=== PATIENT | female | born 1955 | race Caucasian/White ===

== ENCOUNTER 2023-11-14 11:22 | Day surgery (SDC) | payer MEDICARE, OTHER, SELFPAY ==
--- NOTE | 2023-11-14 13:03 | ITS.CL.CATH ---
Hand Miter Operator - Catheterization
Cardiac Catheterization
Procedure Report:
CARDIAC CATHETERIZATION REPORT
Date of Procedure: 11/14/2023
Referring: Jorge Rodriguez MD
Indication: MVP/severe MR with dyspnea on exertion
HEMODYNAMIC DATA
AO: 141/68
LV: 141/14
LEFT VENTRICULOGRAPHY: The left ventricle appears to be normal in size. There is normal regional wall motion with EF 64% with 3-4+ (severe) mitral regurgitation
CORONARY ANGIOGRAPHY
Dominance: Right
Left Main: Normal
LAD: Normal
Circumflex: Normal
RCA: Normal dominant vessel
Closure Device: None-the procedure was performed
Radiation (mGy): 78.8
DAP (cm2.Gy): 6.4
Fluoroscopy time: 1.7 minutes
CONCLUSIONS
1: Normal left ventricular size and function with EF 64%
2: Severe mitral regurgitation
3. Normal coronary arteries
4. Recommend corrective mitral valve surgery
Copy to: Jorge Rodriguez MD, Christian Hernández,
Charlie Peterson MD, FAC, [facility]
[2023-11-14] MEDS: NSS 1000 IV (13:56)
== END 2023-11-14 16:38 | disposition home or self-care (01) ==
LOC: CATH 11:22
PROVIDERS: ATTENDING PHYSICIAN Internal Medicine Cardiovascular Disease; FAMILY PHYSICIAN Internal Medicine; OTHER PHYSICIAN Internal Medicine Cardiovascular Disease
DX: I34.0 Nonrheumatic mitral (valve) insufficiency (principal); R00.2 Palpitations; I47.29 Other ventricular tachycardia; E03.9 Hypothyroidism, unspecified; K21.9 Gastro-esophageal reflux disease without esophagitis; Z87.891 Personal history of nicotine dependence; Z79.82 Long term (current) use of aspirin
CPT/HCPCS: 93458; C1894

== ENCOUNTER → 2023-12-04 14:05 | Outpatient (REF) | payer MEDICARE, OTHER, SELFPAY | LOC: HWRAD 14:05 | PROVIDERS: ATTENDING PHYSICIAN Thoracic Surgery (Cardiothoracic Vascular Surgery); FAMILY PHYSICIAN Internal Medicine | DX: I34.0 Nonrheumatic mitral (valve) insufficiency (principal); Z01.818 Encounter for other preprocedural examination | CPT/HCPCS: 71275; 74174; Q9967 ==

== ENCOUNTER 2023-12-10 05:11 | Inpatient (IN) | payer MEDICARE, OTHER, SELFPAY ==
[2023-12-06 09:52] VITALS: BMI 30.7
[2023-12-06 10:11] LABS: % Basophils 0.8 % (0-2); % Eosinophils 5.7 % (0-6); % Immature Granulocytes 0.2 % (0-0.5); % Lymphocytes 24.9 % (20.5-51.1); % Monocytes 6.2 % (1.7-9.3); % Neutrophils 62.2 % (42.2-75.2); Absolute Basophils 0.1 10^3/uL (0-0.2); Absolute Eosinophils 0.4 10^3/uL (0-0.7); Absolute Lymphocytes 1.6 10^3/uL (1.2-3.4); Absolute Monocytes 0.4 10^3/uL (0.1-0.6); Absolute Neutrophils 3.9 10^3/uL (1.4-6.5); Hematocrit 38.6 % (37.0-47.0); Mean Corp Hgb Conc. 33.7 g/dL (33.0-37.0); Mean Corpuscular Hgb 31.9 pg (27.0-31.0); Mean Corpuscular Volume 94.6 fL (81.0-99.0); Mean Platelet Volume 10.4 fL (7.4-10.4); Nucleated Red Blood Cells % 0 %; Platelet Count 212 10^3/uL (130-400); Red Blood Cell Count 4.08 10^6/uL (4.20-5.40); Red Cell Dist. Width 12.8 % (11.5-14.5); White Blood Cell Count 6.3 10^3/uL (4.8-10.8)
[2023-12-06 10:21] LABS: ALT (SGPT) 38 U/L (0-35); AST (SGOT) 42 U/L (14-36); Alkaline Phosphatase 108 U/L (38-126); Blood Urea Nitrogen 18 mg/dl (7-17); Calcium 9.4 mg/dl (8.4-10.2); Carbon Dioxide 29 mmol/L (22-30); Chloride 107 mmol/L (98-107); Direct Bilirubin 0.1 mg/dl (0.0-0.4); Estimated Creatinine Clearance 58 ml/min; Glucose 93 mg/dl (70-99); Sodium 139 mmol/L (135-145); Total Bilirubin 0.6 mg/dl (0.2-1.3); Total Protein 6.5 g/dl (6.3-8.2); eGFR > 60.00
--- NOTE | 2023-12-06 10:32 | CM ---
Chart reviewed. Met with the patient and her in PAT. 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 Reviewed
preoperative and postoperative instructions, along with showering guidelines. Gave patient 2 soaps. Patient is agreeable to a home visit by CT Transitional RN. Plan is for the patient to return home with CT Transitional RN.
[2023-12-06 10:33] LABS: INR 0.94; PT 12.4 Sec (11.4-14.6)
[2023-12-06 10:34] LABS: APTT 26.7 Sec (23.4-35.0)
[2023-12-06 10:42] LABS: Potassium 4.8 mmol/L (3.5-5.1)
[2023-12-06 12:41] LABS: Urine Albumin Negative (Neg - Trace); Urine Bilirubin Negative (Negative); Urine Character Slightly Cloudy (Clear); Urine Color Yellow; Urine Glucose Negative (Negative); Urine Ketone Trace (Negative); Urine Leukocyte 1+ (Negative); Urine Nitrite Negative (Negative); Urine Occult Blood 2+ (Negative); Urine Urobilinogen 1+ (Neg - 1+); Urine pH 6.5 (5.0-9.0)
[2023-12-06 13:27] LABS: Urine Bacteria Few (Negative)
[2023-12-06 13:58] LABS: Glycohemoglobin (HgbA1c) 5.7 % (4.0-5.6)
[2023-12-10] VITALS (10 sets, daily range): BP systolic 84–127; BP diastolic 58–87; BMI 30.2
--- NOTE | 2023-12-10 00:52 | W.PN.CT ---
Assessment / Plan
-
Assessment:
S/p Right mini thoracotomy with right common femoral artery and vein cannulation under CHELSEY guidance/Radical mitral valve repair (32 mm band annuloplasty, [place]-Ángel cords placed to A2, P2, P3, cleft closure of P2/P3 and P1/P2)/Left atrial appendage
exclusion (sewn shut)/ PFO/ASD Closure, by Dr. Ponce, 12/10/23, pod#1
-Severe MR secondary to degenerative mitral valve disease, type II pathology
-LVEF 55-60% per intraop CHELSEY
-Mild TR
-Hx NSVT/PVC's
-Palpitations
-HTN
-HLD
-Class 1 obesity (BMI 30.7)
-Prediabetes (A1C 5.7)
-GERD
-Hypothyroidism
-Acne vulgaris
-Ptosis
-Migraines
-Iron deficiency anemia
-Vit D deficiency
-Diverticulosis
-Colon polyps (sessile serrated adenoma)
-Fibrocystic breast
-S/p D&C, 07/18/11
-S/p b/l tubal ligation
-S/P polypectomies
-S/P Repair of left index finger
-S/p b/l cataracts with lens implantation
-Acute postop blood loss/Anemia (stable without transfusion)
-Acute postop atelectasis
-Acute postop hypovolemia with subsequent hypervolemia
Plan:
-No major issues overnight. Hemodynamically and neurologically intact
-Successfully extubated yesterday 12/10/23 in the OR
-Weaned off Levophed overnight, remains on insulin gtt per protocol
-Last CI 2.4, SVO2 ,U/O since OR 1055 mL
-Monitor chest tube output: R Pleural + meds ->
-Cont. current meds (ASA, Synthroid; held Amiodarone and Lopressor last night given hypotension and bradycardia)
-D/C swan and a-line
-Will D/C insulin gtt/transfer to telemetry phase today
-D/C morse
-Maintain cordis
-Maintain temporary pacer wires (will cut before d/c home)
-Encourage use of IS
-Wean off of O2
-OOB into chair
-Ambulate
Subjective
-
Date of Service: December 10, 2023
Objective Data
-
Lab Results
12/06/23 08:49
12/06/23 08:49
PT 12.4 Sec (11.4-14.6) 12/06/23 08:49
INR 0.94 12/06/23 08:49
APTT 26.7 Sec (23.4-35.0) 12/06/23 08:49
[2023-12-10] MEDS: MAGNESIUM OXIDE 500 MG PO (05:34)
[2023-12-10] MEDS: LOPRESSOR 25 MG PO (05:34)
[2023-12-10] MEDS: PROTONIX 40 MG PO (05:34)
--- NOTE | 2023-12-10 07:00 | W.CVOR.SURPR ---
CVOR Surgeon Immed Pre Op
-
I have examined this patient prior to performance of the scheduled procedure.
The patient's condition is unchanged from the time of the dictated/written History and
Physical and the patient is able to undergo the scheduled procedure.
MV Repair +/- JENNI Exclusion
[2023-12-10 07:26] LABS: ACT+ - POC 93 Seconds (82-134)
[2023-12-10 07:29] LABS: B.E. - POC -2.9 mmol/L; Glucose - POC 89 mg/dl (65-99); HCO3 - POC 23 mmol/L (21-29); Hematocrit - POC 34 % PCV (37-47); Hemodilution- POC No; Hemoglobin Calculated - POC 11.4; Ionized Calcium - POC 1.23 mmol/L (1.12-1.27); O2 Saturation %Calculated-POC 99.9 5 (92-96); PCO2 - POC 41 mmHg (35-45); PO2 - POC 342 mmHg (80-100); Potassium - POC 3.6 mmol/L (3.6-5.0); Sodium - POC 143 mmol/L (135-145); pH - POC 7.35 (7.35-7.45)
[2023-12-10 07:54] LABS: Urine Albumin Negative (Neg - Trace); Urine Bilirubin Negative (Negative); Urine Character Clear (Clear); Urine Color Yellow; Urine Glucose Negative (Negative); Urine Ketone Negative (Negative); Urine Leukocyte Negative (Negative); Urine Nitrite Negative (Negative); Urine Occult Blood Negative (Negative); Urine Urobilinogen Negative (Neg - 1+)
[2023-12-10 08:59] LABS: ACT+ - POC 523 Seconds (82-134)
--- NOTE | 2023-12-10 08:59 | CM ---
pt in OR today, cm following
[2023-12-10 09:36] LABS: Glucose - POC 115 mg/dl (65-99); HCO3 - POC 28 mmol/L (21-29); Hematocrit - POC 31 % PCV (37-47); Hemodilution- POC Yes; Hemoglobin Calculated - POC 10.7; Ionized Calcium - POC 0.99 mmol/L (1.12-1.27); PCO2 - POC 42 mmHg (35-45); PO2 - POC 459 mmHg (80-100); Potassium - POC 5.2 mmol/L (3.6-5.0); Sodium - POC 137 mmol/L (135-145); pH - POC 7.42 (7.35-7.45)
[2023-12-10 09:43] LABS: ACT+ - POC 738 Seconds (82-134)
[2023-12-10 10:11] LABS: ACT+ - POC 564 Seconds (82-134)
[2023-12-10 10:13] LABS: B.E. - POC 2.2 mmol/L; Glucose - POC 145 mg/dl (65-99); HCO3 - POC 26 mmol/L (21-29); Hematocrit - POC 30 % PCV (37-47); Hemodilution- POC Yes; Hemoglobin Calculated - POC 10.2; Ionized Calcium - POC 1.08 mmol/L (1.12-1.27); O2 Saturation %Calculated-POC 99.9 5 (92-96); PCO2 - POC 37 mmHg (35-45); PO2 - POC 254 mmHg (80-100); Potassium - POC 4.9 mmol/L (3.6-5.0); Sodium - POC 139 mmol/L (135-145); pH - POC 7.46 (7.35-7.45)
[2023-12-10 10:57] LABS: ACT+ - POC 438 Seconds (82-134)
[2023-12-10 11:02] LABS: B.E. - POC 0.2 mmol/L; Glucose - POC 147 mg/dl (65-99); HCO3 - POC 25 mmol/L (21-29); Hematocrit - POC 29 % PCV (37-47); Hemodilution- POC Yes; Hemoglobin Calculated - POC 9.8; Ionized Calcium - POC 1.09 mmol/L (1.12-1.27); O2 Saturation %Calculated-POC 99.9 5 (92-96); PCO2 - POC 38 mmHg (35-45); PO2 - POC 298 mmHg (80-100); Potassium - POC 4.2 mmol/L (3.6-5.0); Sodium - POC 142 mmol/L (135-145); pH - POC 7.42 (7.35-7.45)
[2023-12-10] MEDS: STERILE WATER FOR INJECTION 16 ML IV ×2 (11:19→13:08)
[2023-12-10] MEDS: ZINACEF 1500 MG IV ×2 (11:19→13:08)
[2023-12-10 11:29] LABS: ACT+ - POC 90 Seconds (82-134)
[2023-12-10 11:33] LABS: B.E. - POC -4.1 mmol/L; Glucose - POC 110 mg/dl (65-99); HCO3 - POC 20 mmol/L (21-29); Hematocrit - POC 25 % PCV (37-47); Hemodilution- POC Yes; Hemoglobin Calculated - POC 8.5; Ionized Calcium - POC 1.33 mmol/L (1.12-1.27); O2 Saturation %Calculated-POC 90.5 5 (92-96); PCO2 - POC 34 mmHg (35-45); PO2 - POC 60 mmHg (80-100); Potassium - POC 3.3 mmol/L (3.6-5.0); Sodium - POC 141 mmol/L (135-145); pH - POC 7.39 (7.35-7.45)
--- NOTE | 2023-12-10 12:20 | W.PN.CT.SURG ---
CT Surgery Operative Note
-
CARDIAC SURGERY OPERATIVE REPORT
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
Postoperative Diagnosis: Same
Procedure(s) Performed:
1. Right mini thoracotomy with right common femoral femoral artery and vein cannulation under CHELSEY guidance
2. Radical mitral valve repair (32 mm band annuloplasty, [place] cords placed to A2, P2, P3, cleft closure of P2/P3 and P1/P2)
3. Left atrial appendage exclusion (sewn shut)
4. PFO/ASD Closure
5. Placement temporary ventricular pacing wires
6. Trans esophageal echocardiography
Date of Surgery: 12/10/2023
Comorbidities:
1. Severe mitral valve insufficiency secondary to degenerative mitral valve disease, type II pathology
2. Hypothyroidism
3. GERD
4. Colonic polyps
5. Iron deficiency anemia
6. Cataracts
7. History of NSVT/PVC
8. Hyperlipidemia
Attending Surgeon: Nemesio Ponce MD, MS
Assistants: Delicia Culp PA-C (present and necessary for retraction, suctioning, exposure, suture management, wound closure, etc. under my direction)
Anesthesiology: Francisco Aguirre MD and Elier Soler CRNA
Scrub and Circulating RNs: Lori Gallardo RN, Honey Padilla RN
Marine Engine Mechanic: Miryam Palencia CCP
Anesthesia: GETA
EBL: per perfusion records
Products: None
CPB Time: 134 minutes
Aortic Cross Clamp Time: 104 minutes
Indication(s) for Procedures: This is a 68-year-old female with known mitral valve prolapse and insufficiency in the past. She had new onset dyspnea on exertion and underwent left heart catheter demonstrated normal coronary arteries and normal left
ventricular function. However on transesophageal echocardiography of her valve had severe eccentric and a complex component of insufficiency. She met stage D symptomatology and class I indication for mitral valve intervention.
Mitral Valve Description: Bileaflet prolapse and lip thickening of both leaflets. The majority of the prolapse segments belong to P2 and P3 with a large scallop between both. The A2 and A3 segment was also prolapse. Annulus was asymmetrically
dilated toward the P2 and P3 segments. No obvious flail component with identified.
Implants:
1. 32mm NEVAREZ PhysioFlex, SN [id number]
2. CV4 Goretex x 4 (3 to P2/3 and 1 to A2)
Specimen:
1. None
Findings: Left ventricular ejection fraction preoperatively was 60%. Following surgery remained the same at 60% with no new regional wall motion abnormalities. RV function was normal. The mitral valve was myxomatous with prolapse of both
leaflets. A total of 12 nonpledgeted 2 Ethibond sutures were placed from trigone to trigone to support the annulus and 3 pairs of CV 4 [place] were placed to the posterior leaflet. A single pair of CV 4 [place] was placed in the posterior
papillary muscle head to the A2 segment of the anterior leaflet. Core knots were used to secure the annuloplasty band in place. Dynamic inflation of the LV with saline demonstrated good coaptation height after marking the coaptation line with ink.
There is also a posterior coaptation margin. The left atrial appendage was verified to be free of any thrombus or debris preoperatively on CHELSEY. Following suture closure in 2 layers, there is no postoperative flow identified going into the left
atrial appendage. A PFO was identified on preoperative CHELSEY with a small shunt preoperatively going from left to right. This was closed with 5-0 Prolene and secured with a mini core knot following surgery there was no residual mitral valve
insufficiency, no systolic anterior motion of the leaflets, and good excursion without a significant gradient. She was initially sinus bradycardic and required VVI pacing at 60. No inotropes required no products were given.
Description of Procedure: The patient was brought to the operating room and placed supine in the table with their right side bumped up and right arm down. Arterial and central access was performed by anesthesiology. The patient was prepped from chin
to toes in the typical sterile fashion. Trans esophageal evaluation of cardiac function and all valvular structures was conducted. Before commencing, a time out was performed by all members of the team. All were in agreement with the procedure and
laterality and I proceeded. A small right groin incision was made to expose the common femoral artery and vein. A total of 40,000units of heparin was given. A 5-6 cm right lateral thoracotomy was performed over the 4th intercostal space verified by
visualization of the hilum. The common femoral artery and vein were cannulated under transesophageal guidance using open Seldinger technique. The arterial line was verified to have an appropriate bounce and pressure correlating with testing. Once
the ACT was above 400, retrograde autologous priming was done and we commenced cardiopulmonary bypass. Target core temperature was 34�C.
Carbon dioxide was used to flood the field. The course of the phrenic nerve was identified to prevent injury. The pericardium was opened and two stay sutures were placed to facilitate a ``pericardial table.��I also used the pericardium to help
retract the diaphragm from the field of view. The oblique sinus was developed followed by the inter atrial groove. An antegrade root vent was inserted and secured with a pursestring suture. The pump flow and mean arterial pressure were lowered and
an aortic cross clamp was applied to the ascending aorta. A total of 1.2L initial dose of antegrade cardioplegia was delivered. We had rapid electro myocardial quiescence at 350cc of cardioplegia. The ventricle was monitored for distension by
echocardiogram during this time. The left atrium was incised and enlarged. A left atrial lift retractor was placed. The mitral valve was inspected. The mitral valve was repaired as described above. The left atrial appendage was closed with 2 layers
using 3-0 prolene and secured with a corknot. The left atrial lift was pulled back and then the PFO was probed and closed with 5-0 prolene in 2 layers and then secured with a mini corknot. The left atriotomy was closed with 3-0 prolene in a running
fashion leaving a ventricular vent in place to de-air. After filling the heart, the vent was removed and the prolene was secured with a corknot. Unipolar ventricular pacing wire was placed on the base of the right ventricle. The patient was placed
into Trendelenburg position and pump flows were lowered. The clamp was slowly removed with the root vent turned on. De-airing maneuvers were performed. We started to rewarm with a target of 36.5�C.
As the heart recovered, the mitral valve and ventricular function were assessed under transesophageal echocardiogram. The root vent was removed. Once weaning parameters were satisfactory, cardiopulmonary bypass flow was lowered until we were off
cardiopulmonary bypass the mitral valve was inspected again. All surgical sites were inspected for hemostasis and appeared appropriate. The lines were clamped and the arterial was relocated to the venous cannula to give back volume. A test dose of
protamine was delivered and patient was monitored for any adverse reactions followed by complete protamine dosing. The femoral vessels were decannulated and repaired as indicated. The pericardium was approximated with 2-0 ethibond sutures secured
with corknots. One 19F Surya drain remained in the pleural space and one 24F surya drain in the pericardium. There was an excellent palpable distal to the AIRCRAFT ENGINE TECHNICIAN cannulation site. Local analgesia was injected to the thoracotomy. The rib space was
approximated with #1 vicryl suture. The incision was closed in layers in a running fashion.
All instrument, sponge, and needle counts were confirmed to be correct x 2 at the end of the operation. The patient was transferred to the cardiac intensive care unit in critical but stable condition.
I, Dr. Nemesio Ponce, was present, scrubbed for, and performed all critical elements of this procedure.
Nemesio Ponce MD, MS
Cardiothoracic Surgeon
[facility]
This dictation was created using the [employer] dictation system. Please excuse any grammatical, typographical, or 'sound alike' errors
[2023-12-10] MEDS: ALBUMIN 5% 250 IV ×2 (12:59→20:10)
[2023-12-10] MEDS: BACTROBAN 2% OINTMENT 1 APPLIC NASAL ×2 (13:03→19:33)
[2023-12-10] MEDS: NSS 500 IV (13:03)
[2023-12-10] MEDS: TYLENOL PO (13:03)
[2023-12-10] MEDS: TORADOL 15 MG IV ×2 (13:07→19:34)
[2023-12-10 13:13] LABS: Glucose - Point of Care 141 mg/dl (70-99)
--- NOTE | 2023-12-10 13:19 | W.PN.CD ---
Today's Communication / Plan
-
wean drips as tolerated
Impression / Plan
-
S/P complex MV repair for bileaflet prolapse: Doing well immediate postop. Vpaced with occ A pacing. On levo/NTG.
ECG ELL TUTOR- not clearly sinus underlying. Suspect junctional
Hypothyroid: On synthroid
Physical Exam
Vital Signs/Labs
Vital Signs
Temp Pulse Resp BP Pulse Ox
96.8 F L 66 18 154/75 98
12/10/23 13:00 12/10/23 05:34 12/10/23 05:26 12/10/23 05:34 12/10/23 05:26
12/09/23 12/10/23 12/11/23
06:59 06:59 06:59
Actual Weight 181 lb 3.52 oz
PT 12.4 Sec (11.4-14.6) 12/06/23 08:49
INR 0.94 12/06/23 08:49
APTT 26.7 Sec (23.4-35.0) 12/06/23 08:49
Physical Exam
Constitutional: No acute distress
Cardiovascular: Rhythm & rate is regular and Systolic murmur absent
Respiratory: Respiratory effort normal and Rhonchi Present
Neuro/Psych: Motor deficits absent
Data Reviewed
-
Date of Service: December 10, 2023
[2023-12-10 13:21] LABS: B.E. -3.3 mmol/L; HCO3 23.9 mmol/L (21-28); Ionized Calcium 1.28 mMOL/L (1.15-1.33); PCO2 52 mmHg (32-35); PO2 203 mmHg (83-108); Potassium 3.8 mMOL/L (3.5-5.1); Sodium 140 mMOL/L (136-145); pH 7.27 (7.35-7.45)
[2023-12-10 13:22] LABS: Hemoglobin 10.2 g/dL (12.0-16.0); Platelet Count 150 10^3/uL (130-400)
[2023-12-10 13:31] LABS: INR 1.28; PT 15.9 Sec (11.4-14.6)
[2023-12-10 13:32] LABS: APTT 26.9 Sec (23.4-35.0)
--- NOTE | 2023-12-10 13:32 | CON.INTV ---
Consultation
Consultation Request
Date/Time Consultation Requested: 12/10/23
Date/Time Consultation Performed: 12/10/23
Medical History
-
History of Present Illness:
Patient is a 68-year-old female with known history of mitral valve prolapse and severe mitral insufficiency with complaints of progressive dyspnea on exertion. Underwent mitral valve repair 12/10/23 and postoperatively transferred to CVICU for
further management.
No prior known history of lung disease. Was a former smoker. Quit >30 years ago, total use of 1 PPD for 20 years.
Past Medical History
Past Medical History: Other (see list below)
Social History
Tobacco: Former Smoker
Alcohol: None
Drug: None
Family History
Family History: Reviewed & Not Pertinent
Allergies / Home Medications
Allergies
Allergy/AdvReac Type Severity Reaction Status Date / Time
kiwi Allergy throat Verified 12/04/23 09:57
[Kiwi (Actinidia Chinensis)] irritation
Home Medications
Medication Instructions Recorded Confirmed Last Taken Type
cholecalciferol (vitamin D3) 25 25 mcg PO DAILY Supplement 06/20/23 12/10/23 12/09/23 12:00 History
mcg (1,000 unit) capsule (Vitamin
D3)
levothyroxine 150 mcg tablet 150 mcg PO DAILY Thyroid 06/20/23 12/10/23 12/09/23 07:00 History
magnesium sulfate 100 mg capsule 500 mg PO DAILY Supplement 06/20/23 12/10/23 12/09/23 12:00 History
metoprolol succinate 25 mg 12.5 mg PO QPM Heart 06/20/23 12/10/23 12/09/23 12:00 History
tablet,extended release 24 hr Disease/Condition
(Toprol XL)
multivitamin 1 tab PO DAILY Supplement 11/14/23 12/10/23 12/09/23 12:00 History
Review of Systems
-
History Source: Patient
All other systems: Negative unless noted
Vitals / Labs / Diagnostic Testing
Vital Signs
Temp Pulse Resp BP Pulse Ox
96.8 F L 66 18 154/75 98
12/10/23 13:00 12/10/23 05:34 12/10/23 05:26 12/10/23 05:34 12/10/23 05:26
Laboratory Results
12/10/23
13:11
PT 15.9 H
INR 1.28
pH 7.27 L
pCO2 52 H
pO2 203 H
HCO3 23.9
O2 Delivery Level
Microbiology
12/06/23 08:49 Nose MRSA Screen - Final
No Methicillin Resistant Staphylococcus aureus isolated.
12/06/23 08:49 Urine Urine Culture - Final
Diagnostic Testing:
Physical Exam
-
HEENT: Normocephalic, Anicteric and Moist Mucous Membranes
Cardiovascular: S1/S2 and Regular Rhythm
Respiratory: Clear and Non-Labored Respirations
GI: Soft, Non Distended and Non Tender
Neurology: Awake, Alert, Oriented and Other (sleepy but arousable)
Skin: Warm, Dry and Good Color
General: Comfortable and Other (NAD)
Assessment
-
Patient is a 68-year-old female with known history of mitral valve prolapse and severe mitral insufficiency with complaints of progressive dyspnea on exertion. Underwent mitral valve repair 12/10/23 and postoperatively transferred to CVICU for
further management.
MVP with severe MVI s/p MVR 12/10/23
Small PFO s/p closure 12/10/23
BEASLEY
Periop MV s/p extubation
Postop anemia
Acute hypercarbic resp failure, mild (ABG 7.27/52)
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
Former smoker
[place] Vulgaris� �
Hypothyroidism
Fibrocystic breast� �
GERD� �
H/o colon polyp/sessile serrated tubular adenoma � �
H/o ptosis s/p bleph surgery� �
Low Vitamin D� �
Iron deficiency anemia� �
Cataracts s/p cataract extraction and lens implantation (2009)� �
Diverticulosis� �
NSVT, PVC's� �
Hyperlipidemia� �
s/p B/L tubal ligation
L index finger surgery
Obesity
Plan
S/p MVR POD #0
Titrate off pressors per protocol
ECHO reviewed with normal function
PA catheter readings reviewed
Management of chest tubes per primary service
Pain control
RASS goal of 0 to -1
Intubated for procedure, extubated in PACU, tolerating well
ABG(s) reviewed showing mild hypercarbia, repeat pending
CXR with no obvious opacities/infiltrates, low lung volumes, lines/tubes in place
Maintain supplement oxygen as needed
No prior known history of lung disease.
Was a former smoker. Quit >30 years ago, total use of 1 PPD for 20 years.
No prior PFTs for review
Can add nebulizers if needed
Aspiration precautions
Encouraged incentive spirometry, OOB/ambulation/early mobility
Possible underlying SIXTO, risk factors include BMI, age
Advance diet as tolerated following extubation
GI prophylaxis if indicated for mechanical ventilation >48 hours
Monitor critical I/O's
Reis/chest tube output
Hb/platelets postoperatively stable
Trend CBC for now
Can transfuse if indicated for Hb <7, plt <50 in surgical patients
DVT prophylaxis including SCDs
We will follow
Diagnostic Data
Chest X-Ray: 12/09/23- Right internal jugular approach [place]-Dilip catheter with the tip in the main pulmonary artery. Two catheters project over the upper and lower aspects of the mediastinum. A defibrillator pad overlies the right chest wall.
Ptqt-lg-[id number] elevation of the right hemidiaphragm. No focal consolidation, pleural effusion, or pneumothorax. The cardiomediastinal silhouette is stable.
09/14/22- No acute radiographic abnormality in the chest. Specifically, no evidence for right apical pneumothorax
CT Scan: CAP 12/04/23- Mild calcific atherosclerotic changes of the thoracic aortic arch and descending thoracic aorta. No findings to suggest thoracic/abdominal aortic aneurysm or dissection.
Either two small contiguous simple right lobe hepatic cyst versus larger single bilobed cyst. Small simple left renal cyst. Few small right lower quadrant mesenteric lymph nodes, nonspecific. Findings could represent mesenteric adenitis. Small fat
only containing umbilical hernia.
Echo: CHELSEY 12/10/23- Severe mitral regurgitation resulting from prolapsing P2, P3, A3 leaflet segments and a P2/P3 cleft.� Trace jet of central aortic insufficiency is also�seen.� Mild tricuspid regurgitation.� The thoracic aorta is grossly
normal.��Small patent foramen ovale is seen.� Normal biventricular systolic function�with LVEF of 55-60% by visual inspection.� Dilated left atrium noted.
�
PFT's:
Reports and relevant images were personally reviewed.
-----
Critical Care time 50 mins -- The patient is admitted for acute critical illness for the treatment of vital organ failure and/or prevention of further life-threatening conditions. Total care includes time spent in review of history, physical exam,
medications, hemodynamic/ventilator parameters, laboratory data, imaging and discussion with house staff, pharmacy, respiratory therapy, eap consultant, and nursing.
[2023-12-10 13:34] LABS: Blood Urea Nitrogen 18 mg/dl (7-17); Estimated Creatinine Clearance 64 ml/min; Glucose 137 mg/dl (70-99); Magnesium 3.1 mg/dl (1.6-2.3)
[2023-12-10] MEDS: SODIUM BICARBONATE 50 MEQ IV (13:41)
[2023-12-10] MEDS: KCL 50 IV ×2 (13:42→13:45)
[2023-12-10] MEDS: DILAUDID 0.25 MG IV ×2 (13:46→21:55)
--- NOTE | 2023-12-10 13:52 | PTCARENOTE ---
received patient from cvor. Drowsy but arousable. Extubated wearing a simple face mask. V paced on monitor HR 70. Temp wire in place. Usual lines, CTx2 to -20 wall suction. Draining red. No air leaks/crepitus. CXR done, labwork drawn and sent. Out
on levo and insulin per glycemic protocol. Reis draining clear yellow urine. Bowel sounds hypoactive. R groin site RORY with surgical glue as well as 3 puncture sites on R side and chest. CI 1.[address] Ponce at bedside, asking for 1 bag
albumin to be given. will continue to monitor.
--- NOTE | 2023-12-10 14:02 | W.PN.UPDATE ---
Update Note
Progress Note Update
IV fluids: 2450ml
U.O.:� 650
UF:� 1400
Blood:� None
Wires:� V wires
Inotropes:� None
Pressors:� Levophed on standby on arrival to CVICU
Sedatives:� None
�
NEURO: mildly following commands. Extubated in PACU
RESP: mediastinal and R/L pleural (10cc on arrival) chest tubes to -20cm suction. Sanguineous drainage
CV: RRR +S1, S2, no S3, no�rub, no murmur.RIJ w/[place] locked @ 44cm. PA 38/22; CVP 15;
ABD: round, soft, no BS
EXT: no edema, +2/4 DP pulses B/L, no femoral bruit, left radial A-line intact
: Reis with clear yellow urine
�
A/P: POD #0 s/p Radical mitral valve repair (32 mm band annuloplasty, [place]-Ángel cords placed to A2, P2, P3, cleft closure of P2/P3 and P1/P2), PFO closure, and JENNI exclusion
CHELSEY: EF�55-60%
- wean and extubate
- Monitor CT output
- F/u post-op labs
- F/u Post-op CXR
- start ASA 81mg on POD #0
- monitor UOP
- start BB/amio on POD #1
- will need instruction regarding antibiotic prophylaxis for dental and invasive procedures
�
# acute surgical blood loss anemia-expected
- trend CBC
�
# hyperglycemia (expected)
- insulin infusion x 24h
#hypothyroidism
- resume Synthroid
�
[2023-12-10 14:21] LABS: Glucose - Point of Care 153 mg/dl (70-99)
[2023-12-10 15:25] LABS: Glucose - Point of Care 132 mg/dl (70-99)
[2023-12-10 15:36] LABS: B.E. -0.7 mmol/L; HCO3 24.2 mmol/L (21-28); Ionized Calcium 1.26 mMOL/L (1.15-1.33); O2 Saturation % 98.3 % (94-98); PCO2 40 mmHg (32-35); PO2 128 mmHg (83-108); Potassium 5.4 mMOL/L (3.5-5.1); Sodium 141 mMOL/L (136-145); pH 7.39 (7.35-7.45)
[2023-12-10 15:41] LABS: Hematocrit 28.4 % (37.0-47.0); Platelet Count 156 10^3/uL (130-400)
[2023-12-10] MEDS: LOW STRENGTH ASPIRIN 81 MG PO (15:52)
[2023-12-10] MEDS: TYLENOL 650 MG PO ×3 (15:52→23:48)
[2023-12-10 16:57] LABS: Glucose - Point of Care 115 mg/dl (70-99)
[2023-12-10] MEDS: ROXICODONE 5 MG PO (17:04)
[2023-12-10] MEDS: ZOFRAN 4 MG IV (18:33)
[2023-12-10 18:37] LABS: Glucose - Point of Care 98 mg/dl (70-99)
--- NOTE | 2023-12-10 18:37 | PTCARENOTE ---
vomit x2. zofran given iv as ordered.
[2023-12-10 19:30] LABS: Mixed Venous O2 Saturation 56.8 %
[2023-12-10] MEDS: NSS (PRESERVATIVE FREE) 8 ML IV (19:34)
[2023-12-10] MEDS: PEPCID 20 MG IV (19:34)
[2023-12-10] MEDS: ZINACEF 750 MG IV (19:35)
[2023-12-10] MEDS: SENOKOT-S 1 TABLET PO (19:35)
[2023-12-10] MEDS: STERILE WATER FOR INJECTION 8.30000000000000071 ML IV (19:35)
[2023-12-10 20:05] LABS: Glucose - Point of Care 108 mg/dl (70-99)
[2023-12-10 20:09] LABS: Ionized Calcium 1.23 mMOL/L (1.15-1.33)
--- NOTE | 2023-12-10 20:30 | PTCARENOTE ---
Received pt from stephanie RN. Walking rounds completed. AAOx4, complains of 6/10 right sided chest pain-see MAR for medication administration. Pt sinus mai/v-paced on monitor, hr 40s. Epicardial v-wire to back up of 45/10, pacing noted. Heart
tones audible. +palpable pulses. No edema. RIJ cordis and swan maintained at 40 cm. Left radial neris flushed, zeroed and recalibrated. Pulse ox 96% on RA. Lung sounds diminished in bases. CT x2 maintained to -20cm wall suction draining
serosanguineous fluid, no air leak or crepitus. Hypoactive BS. +N/V. Reis catheter maintained and draining adequate amount of joel colored urine. Right groin puncture site with surgical adhesive and RORY. Puncture sites x3 on right side and chest
with surgical adhesive and RORY. Insulin gtt titrated per critical care glycemic protocol. See work list for full assessment, VS and I&Os.
[2023-12-10 20:31] LABS: Potassium 4.4 mmol/L (3.5-5.1)
--- NOTE | 2023-12-10 20:50 | PTCARENOTE ---
Per CVPA Ed, temp wire set to back up of 80/5 and will continue to pace pt overnight
[2023-12-10] MEDS: CALCIUM CHLORIDE 10% SYRINGE 60 MG IV (21:11)
[2023-12-10 22:05] LABS: Glucose - Point of Care 95 mg/dl (70-99)
[2023-12-10] MEDS: SKELAXIN 800 MG PO (23:48)
[2023-12-10 23:57] LABS: Glucose - Point of Care 82 mg/dl (70-99)
[2023-12-11] VITALS (51 sets, daily range): BP systolic 98–140; BP diastolic 30–103; BMI 31.3
--- NOTE | 2023-12-11 00:26 | PTCARENOTE ---
Pt assessment remains unchanged from previous. VSS. Pt V paced at 80 on monitor. Pt medicated for pain-see MAR for medication administration.
[2023-12-11] MEDS: ROXICODONE 5 MG PO ×3 (01:18→19:19)
[2023-12-11] MEDS: DILAUDID 0.25 MG IV ×2 (02:08→07:06)
[2023-12-11 02:11] LABS: Glucose - Point of Care 114 mg/dl (70-99)
--- NOTE | 2023-12-11 03:42 | W.PN.CT ---
Today's Communication / Plan
-
Plan:
-No major issues overnight. Hemodynamically and neurologically intact
-Successfully extubated yesterday 12/10/23 in the OR
-Weaned off Levophed overnight, remains on insulin gtt per protocol
-Required pacing overnight as she was noted to be sinus mai @ 40 bpm. Currently without pacing with intrinsic rhythm of 50-60 bpm, sinus/pvc's
-Last CI 2.14-> 1.85, SVO2 56.8 -> 49.6, U/O since OR 575 mL. Will start Dobutamine gtt @ 1.5 mcg/kg/min per Dr. Ponce
-Monitor chest tube output: R Pleural + meds -> 120/290
-Cont. current meds (ASA, Synthroid; held Amiodarone and Lopressor last night given hypotension and bradycardia; Vit C and Iron added)
-Consider hold on AM dose of Amiodarone and Lopressor given bradycardia and hypotension overnight
-D/C swan and a-line once off dobutamine
-Will D/C insulin gtt/transfer to telemetry phase today
-D/C morse
-Maintain cordis
-Maintain temporary pacer wires (will cut before d/c home)
-Encourage use of IS
-Wean off of O2
-OOB into chair
-Ambulate
Assessment / Plan
-
Assessment:
S/p Right mini thoracotomy with right common femoral artery and vein cannulation under CHELSEY guidance/Radical mitral valve repair (32 mm band annuloplasty, [place]-Ángel cords placed to A2, P2, P3, cleft closure of P2/P3 and P1/P2)/Left atrial appendage
exclusion (sewn shut)/ PFO/ASD Closure, by Dr. Ponce, 12/10/23, pod#1
-Severe MR secondary to degenerative mitral valve disease, type II pathology
-LVEF 55-60% per intraop CHELSEY
-Mild TR
-Hx NSVT/PVC's
-Palpitations
-HTN
-HLD
-Class 1 obesity (BMI 30.7)
-Prediabetes (A1C 5.7)
-GERD
-Hypothyroidism
-Acne vulgaris
-Ptosis
-Migraines
-Iron deficiency anemia
-Vit D deficiency
-Diverticulosis
-Colon polyps (sessile serrated adenoma)
-Fibrocystic breast
-S/p D&C, 07/18/11
-S/p b/l tubal ligation
-S/P polypectomies
-S/P Repair of left index finger
-S/p b/l cataracts with lens implantation
-Acute postop blood loss/Anemia (stable without transfusion)
-Acute postop atelectasis
-Acute postop hypovolemia with subsequent hypervolemia
Discussed patient care with: Cardiology, Nursing, Respiratory Therapy, Pharmacy and Care Team
Subjective
Procedure
Right mini thoracotomy with right common femoral artery and vein cannulation under CHELSEY guidance/Radical mitral valve repair (32 mm band annuloplasty, [place]-Ángel cords placed to A2, P2, P3, cleft closure of P2/P3 and P1/P2)/Left atrial appendage
exclusion (sewn shut)/ PFO/ASD Closure, by Dr. Ponce, 12/10/23
-
Date of Service: December 11, 2023
Pt c/o incisional pain and had some N/V last night, but better this morning
Objective Data
-
PT 15.9 Sec (11.4-14.6) H 12/10/23 13:11
INR 1.28 12/10/23 13:11
APTT 26.9 Sec (23.4-35.0) 12/10/23 13:11
Vital Signs
Vital Signs
Temp Pulse Resp BP Pulse Ox
98.8 F 62 16 120/76 93
12/11/23 03:00 12/11/23 03:00 12/11/23 03:00 12/11/23 01:30 12/11/23 03:00
CT Intake/Output/Weight
12/10/23 12/10/23 12/11/23
06:59 18:59 06:59
Intake Total 497.2 / 1029.0 531.8 / 1029.0
Output Total 465 / 770 305 / 770
Balance 32.2 / 259.0 226.8 / 259.0
SaO2: 93 (RA)
Physical Exam
-
General: Awake, Oriented and AOx3
Cardiovascular: Regular rate & rhythm, No Murmurs, No Rub and No Gallop
Respiratory: Decreased Breath Sounds (at bases, otherwise clear)
Incision: Clean, Dry, Intact and Dressing Intact
Extremities: No Edema
Data Reviewed
-
Lab Results: Results Reviewed
Medications: Active Meds Reviewed
Chest X-Ray: Report Reviewed and Image Reviewed
ECG: Report Reviewed and Image Reviewed
[2023-12-11 03:49] LABS: Glucose - Point of Care 112 mg/dl (70-99)
[2023-12-11] MEDS: ZINACEF 750 MG IV ×2 (04:01→12:00)
[2023-12-11] MEDS: STERILE WATER FOR INJECTION 8.30000000000000071 ML IV ×2 (04:01→12:00)
[2023-12-11] MEDS: TYLENOL PO (04:01)
--- NOTE | 2023-12-11 04:10 | PTCARENOTE ---
Pt assessment remains unchanged from previous. VSS. Sinus Fernando on monitor. AM labs and EKG obtained. pt wiped with CHG wipes and new linens provided.
[2023-12-11 04:20] LABS: Hematocrit 27.1 % (37.0-47.0); Hemoglobin 9.4 g/dL (12.0-16.0); Mean Corp Hgb Conc. 34.7 g/dL (33.0-37.0); Mean Corpuscular Volume 92.2 fL (81.0-99.0); Mean Platelet Volume 10.6 fL (7.4-10.4); Platelet Count 122 10^3/uL (130-400); Red Blood Cell Count 2.94 10^6/uL (4.20-5.40); Red Cell Dist. Width 13.2 % (11.5-14.5); White Blood Cell Count 15.7 10^3/uL (4.8-10.8)
[2023-12-11 04:40] LABS: Blood Urea Nitrogen 27 mg/dl (7-17); Calcium 9.6 mg/dl (8.4-10.2); Carbon Dioxide 20 mmol/L (22-30); Chloride 111 mmol/L (98-107); Estimated Creatinine Clearance 64 ml/min; Glucose 101 mg/dl (70-99); Magnesium 2.5 mg/dl (1.6-2.3); Potassium 4.5 mmol/L (3.5-5.1); Sodium 138 mmol/L (135-145); eGFR > 60.00
[2023-12-11] MEDS: ALBUMIN 5% 250 IV (05:28)
[2023-12-11 05:55] LABS: Mixed Venous O2 Saturation 49.6 %
[2023-12-11] MEDS: DOBUTREX 500 MG 250 IV (06:26)
--- NOTE | 2023-12-11 07:23 | W.PN.ANS.POP ---
Anesthesia Post Operative
- Anesthesia Post Op Note
Vital Signs Stable-See Nursing Note: Yes
Airway Patent: Yes
Adequate Pain Control: Yes
Change in Mental Status: No
Current Postoperative Nausea & Vomiting: No
Anesthesia Complications: No
General Anesthetic Recall: No
Unplanned Admission: No
Post Op Hydration Adequate: Yes
[2023-12-11] MEDS: SYNTHROID 150 MCG PO (07:57)
[2023-12-11] MEDS: LIDOCAINE 4% PATCH 1 PATCH TOPICAL (07:57)
[2023-12-11] MEDS: NSS (PRESERVATIVE FREE) 8 ML IV ×2 (07:57→19:21)
[2023-12-11] MEDS: PEPCID 20 MG IV ×2 (07:58→19:21)
--- NOTE | 2023-12-11 08:00 | PTCARENOTE ---
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 NSR via cm, SaO2 @ 95% on RA. RIJ Cordis/[place]-Dilip catheter, L radial arterial lines present - leveled,
flushed, and calibrated w/good waveform returned. Hemosphere cardiac monitoring device in use, hemodynamics correlating w/PA catheter. Mediastinal and R pleural chest tubes, Y-connected to one pleuravac, no air leak noted on -20cm suction. Reis
catheter to gravity. All procedural sites stable. Patient updated to plan of care for the day, in agreement. See work list for full assessment and interventions performed.
[2023-12-11] MEDS: VITAMIN C PO (08:10)
[2023-12-11] MEDS: BACTROBAN 2% OINTMENT 1 APPLIC NASAL ×2 (08:17→19:22)
[2023-12-11] MEDS: TORADOL 15 MG IV ×2 (08:17→18:41)
[2023-12-11] MEDS: TYLENOL 650 MG PO ×4 (08:19→19:21)
[2023-12-11] MEDS: LASIX 40 MG IV (08:19)
[2023-12-11] MEDS: LOW STRENGTH ASPIRIN 81 MG PO (08:20)
[2023-12-11] MEDS: NEURONTIN 100 MG PO ×3 (08:20→22:57)
[2023-12-11] MEDS: SENOKOT-S 1 TABLET PO ×2 (08:20→19:20)
[2023-12-11] MEDS: VITAMIN C 500 MG PO (08:20)
[2023-12-11] MEDS: KCL 20 MEQ PO (08:21)
[2023-12-11] MEDS: MAGNESIUM OXIDE 500 MG PO ×2 (08:21→19:20)
--- NOTE | 2023-12-11 08:53 | W.PN.CD ---
Today's Communication / Plan
-
Routine post operative management.
Encourage incentive spirometry and ambulation when appropriate.
Wean pressors/inotropes.
Not quite ready for diuretics.
Impression / Plan
-
Impression/Plan: 68 y/o female with mitral valve prolapse and severe mitral regurgitation admitted for elective mitral valve repair.
#MVP with severe MR
-S/P complex MV repair using a #32 Burroughs PhysioFlex band (SN [id number]) and GoreTex Neochords x4 (three to P2/3, one to A2).
-Routine post operative management per CT surgery.
-Agree with furosemide this morning.
-Encourage incentive spirometry and ambulation.
-Chest tube management per CTS.
#Hypothyroidism
-Chronic, stable.
-Home levothyroxine.
Subjective/Interval History:
MVR yesterday.
Weight 85.2 <-- 83.7.
BP stable.
SaO2 96% on 2LNC.
Furosemide 40 mg given then morning.
DATA:
Intraprocedural CHELSEY, 12/10/2023:
CONCLUSIONS
�Severe mitral regurgitation resulting from prolapsing P2, P3, A3 leaflet
�segments and a P2/P3 cleft.� Trace jet of central aortic insufficiency is also
�seen.� Mild tricuspid regurgitation.� The thoracic aorta is grossly normal.�
�Small patent foramen ovale is seen.� Normal biventricular systolic function
�with LVEF of 55-60% by visual inspection.� Dilated left atrium noted.
POST OPERATIVE FINDINGS
�S/P mitral valve repair with band and neochords; left atrial appendage
�exclusion
�
�The mitral valve opens adequately with no residual regurgitation.� The mean
�gradient is 1 mmHg.� The left atrial appendage is sewn closed with no flow seen
�by color Doppler.� The patent foramen ovale is no longer seen.� Otherwise
�unchanged exam.� The rhythm is VVI paced.
Physical Exam
Vital Signs/Labs
Vital Signs
Temp Pulse Resp BP Pulse Ox
37.1 C 60 26 140/60 96
12/11/23 08:00 12/11/23 08:19 12/11/23 08:00 12/11/23 08:19 12/11/23 08:42
12/09/23 12/10/23 12/11/23
11:59 11:59 11:59
Actual Weight 82.2 kg 85.2 kg
12/11/23 03:42
12/11/23 03:42
PT 15.9 Sec (11.4-14.6) H 12/10/23 13:11
INR 1.28 12/10/23 13:11
APTT 26.9 Sec (23.4-35.0) 12/10/23 13:11
Magnesium 2.5 mg/dl (1.6-2.3) H 12/11/23 03:42
Physical Exam
Constitutional: No acute distress and Comfortable
EENT: Anicteric and Moist mucous membranes
Cardiovascular: Rhythm & rate is regular, Pedal edema is absent, JVD pressure is normal, S1S2 is normal and Murmur/rub/gallop absent
Respiratory: Respiratory effort normal, Wheeze Absent, Crackles Absent, Rhonchi Absent and Other (Decreased breath sounds around the right side.)
GI: Soft, Distention absent, Flat, Non tender and Normal bowel sounds
Neuro/Psych: AO x 3
Data Reviewed
-
Date of Service: December 11, 2023
Medical Decision Making: Reviewed Test Results, Independent Historian Assessment, Test Interpretation and Review of Case with other Provider
EKG: Tracing Personally Visualized and interpreted and Report Reviewed by me
Echo: Report Reviewed by me
X-Ray/CT/US/MRI/NUC/PET: Image Personally Visualized and interpreted and Report Reviewed by me
Medical Tests (PFT, Pathology etc): Image Personally Visualized and interpreted and Report Reviewed by me
Labs: Labs Reviewed by me
[2023-12-11] MEDS: NSS IV (11:00)
[2023-12-11] MEDS: SKELAXIN 800 MG PO (11:15)
[2023-12-11 11:19] LABS: Glucose - Point of Care 93 mg/dl (70-99)
[2023-12-11 11:19] LABS: Glucose - Point of Care 76 mg/dl (70-99)
[2023-12-11 11:19] LABS: Glucose - Point of Care 109 mg/dl (70-99)
[2023-12-11 11:19] LABS: Glucose - Point of Care 79 mg/dl (70-99)
[2023-12-11 11:22] LABS: Glucose - Point of Care 103 mg/dl (70-99)
--- NOTE | 2023-12-11 12:10 | PTCARENOTE ---
VS obtained, assessment stable. Patient states pain much better controlled w/current regimen. VICKIE Anupama updated to CI/CO w/dobutamine infusion off.
[2023-12-11 13:05] LABS: Glucose - Point of Care 91 mg/dl (70-99)
--- NOTE | 2023-12-11 13:33 | W.PN.INTV ---
Today's Communication / Plan
Recommendations
Remains on pressors, slow weaning in progress
No new complaints, sitting to chair, using IS
Further postop care per team
Assessment
-
Patient is a 68-year-old female with known history of mitral valve prolapse and severe mitral insufficiency with complaints of progressive dyspnea on exertion. Underwent mitral valve repair 12/10/23 and postoperatively transferred to CVICU for
further management.
MVP with severe MVI s/p MVR 12/10/23
Small PFO s/p closure 12/10/23
BEASLEY
Periop MV s/p extubation
Postop anemia
Acute hypercarbic resp failure, mild (ABG 7.27/)
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
Former smoker
[place] Vulgaris� �
Hypothyroidism
Fibrocystic breast� �
GERD� �
H/o colon polyp/sessile serrated tubular adenoma � �
H/o ptosis s/p bleph surgery� �
Low Vitamin D� �
Iron deficiency anemia� �
Cataracts s/p cataract extraction and lens implantation (2009)� �
Diverticulosis� �
NSVT, PVC's� �
Hyperlipidemia� �
s/p B/L tubal ligation
L index finger surgery
Obesity
Plan
S/p MVR POD #1
Titrate off pressors per protocol--slow wean
ECHO reviewed with normal function
PA catheter readings reviewed
Management of chest tubes per primary service
Pain control
RASS goal of 0 to -1
Intubated for procedure, extubated in PACU, tolerating well
ABG(s) reviewed showing mild hypercarbia, repeat adequate
CXR with stable postop changes
Maintain supplement oxygen as needed
No prior known history of lung disease.
Was a former smoker. Quit >30 years ago, total use of 1 PPD for 20 years.
No prior PFTs for review
Can add nebulizers if needed
Aspiration precautions
Encouraged incentive spirometry, OOB/ambulation/early mobility
Possible underlying SIXTO, risk factors include BMI, age
Advance diet as tolerated following extubation
GI prophylaxis if indicated for mechanical ventilation >48 hours
Monitor critical I/O's
Reis/chest tube output
Hb/platelets postoperatively stable
Trend CBC for now
Can transfuse if indicated for Hb <7, plt <50 in surgical patients
DVT prophylaxis including SCDs
Diagnostic Data
Chest X-Ray: 12/09/23- Right internal jugular approach [place]-Dilip catheter with the tip in the main pulmonary artery. Two catheters project over the upper and lower aspects of the mediastinum. A defibrillator pad overlies the right chest wall.
[id number] elevation of the right hemidiaphragm. No focal consolidation, pleural effusion, or pneumothorax. The cardiomediastinal silhouette is stable.
09/14/22- No acute radiographic abnormality in the chest. Specifically, no evidence for right apical pneumothorax
CT Scan: CAP 12/04/23- Mild calcific atherosclerotic changes of the thoracic aortic arch and descending thoracic aorta. No findings to suggest thoracic/abdominal aortic aneurysm or dissection.
Either two small contiguous simple right lobe hepatic cyst versus larger single bilobed cyst. Small simple left renal cyst. Few small right lower quadrant mesenteric lymph nodes, nonspecific. Findings could represent mesenteric adenitis. Small fat
only containing umbilical hernia.
Echo: CHELSEY 12/10/23- Severe mitral regurgitation resulting from prolapsing P2, P3, A3 leaflet segments and a P2/P3 cleft.� Trace jet of central aortic insufficiency is also�seen.� Mild tricuspid regurgitation.� The thoracic aorta is grossly
normal.��Small patent foramen ovale is seen.� Normal biventricular systolic function�with LVEF of 55-60% by visual inspection.� Dilated left atrium noted.
�
PFT's:
Reports and relevant images were personally reviewed.
-----
Critical Care time 32 mins -- The patient is admitted for acute critical illness for the treatment of vital organ failure and/or prevention of further life-threatening conditions. Total care includes time spent in review of history, physical exam,
medications, hemodynamic/ventilator parameters, laboratory data, imaging and discussion with house staff, pharmacy, respiratory therapy, hospice chaplain, and nursing.
Subjective Dataa
Subjective Data
Date of Service:
Date of Service: December 11, 2023
Chief Complaint: Enrober Follow Up
Subjective:
Remains on dobutamine, PAC in place
sitting in chair, feeling better
No SOB
Objective Data
Data Reviewed
Vital Signs / I&O / Oxygen:
Vital Signs
Temp Pulse Resp BP Pulse Ox
98.5 F 55 11 106/60 95
12/11/23 13:00 12/11/23 13:00 12/11/23 13:00 12/11/23 12:30 12/11/23 13:00
Intake and Output
12/10/23 12/11/23 12/12/23
06:59 06:59 06:59
Intake Total 1153.6 / 1178.4 413.2 / 413.2
Output Total 895 / 940 1210 / 1210
Balance 258.6 / 238.4 -796.8 / -796.8
SaO2 95
Nasal Cannula flow liters per 2
minute
Physical Exam
General: Comfortable and Other (NAD)
HEENT: Normocephalic, Anicteric and Moist Mucous Membranes
Cardiovascular: S1-S2 and Regular Rhythm
Respiratory: Clear, Non-Labored Respirations and Chest Tube
GI: Soft, Non Distended and Non Tender
Neurology: Awake, Alert, Oriented, AO x 3 and No Motor Deficits
Skin: Warm, Dry and Good Color
Labs/Micro/Reports
Lab Data
12/11/23 03:42
12/11/23 03:42
Laboratory Results
12/10/23
15:15
pH 7.39
pCO2 40 H
pO2 128 H
HCO3 24.2
O2 Delivery Level
[2023-12-11] MEDS: FERRLECIT 110 MG IV (15:17)
--- NOTE | 2023-12-11 20:14 | PTCARENOTE ---
Assumed care of patient at 1900. Patient found in bed at time of assessment. Patient is AOx4, follows commands appropriately, moves all extremities. Lung sounds are clear, diminished at the bases, patient is on 2L via NC saO2 at 99%, CTx2 1xmed and
R pleural draining serosanguineous to one atrium. Heart sounds have a regular rate and rhythm, patient is SB to NSR, v wires are present PPM currently off. Patient has normal palpable pulses and trace BLE edema. Patient has soft nontender abdomen
with active BS throughout all four quadrants no postop BM yet. Reis is in place draining clear yellow urine good UOP reported during day. Patient has a R IJ cordis with swan at 40cm and a R radial A line. There is a R chest incision approx with
surg adhesive RORY with some black/purple ecchymosis present. There is a R groin incision approx with surg adhesive CHECK WEIGHER. There is an ABD dressing over CT wounds that is CDI. Patient has the following gtts: Dobut 0.5mcg, VIP KVO, Cordis KVO. Vital
signs as follows: T-98.6 BP-121/51 MAP-71 P-57 RR-20 CI-2.37 PAP-39/20 CVP-15. Patient reporting mild pain around the site of chest tubes administered Mariana 5mg per parameters. Patient is stable.
[2023-12-12] VITALS (29 sets, daily range): BP systolic 96–156; BP diastolic 49–89; PULSE 58; O2SAT 94–98; BMI 31.6
[2023-12-12] MEDS: TYLENOL PO (00:03)
--- NOTE | 2023-12-12 00:04 | PTCARENOTE ---
Patient reassessed. VSS. Patient remains on 2L via NC. Remains SB on the monitor. No c/o pain at this time. Patient is stable.
[2023-12-12] MEDS: ROXICODONE 5 MG PO ×2 (02:09→07:13)
[2023-12-12] MEDS: NITROGLYCERIN PREMIX 250 IV (02:40)
[2023-12-12 03:27] LABS: Hematocrit 25.9 % (37.0-47.0); Hemoglobin 8.8 g/dL (12.0-16.0); Mean Corpuscular Hgb 32.1 pg (27.0-31.0); Mean Corpuscular Volume 94.5 fL (81.0-99.0); Red Blood Cell Count 2.74 10^6/uL (4.20-5.40); Red Cell Dist. Width 13.7 % (11.5-14.5); White Blood Cell Count 10.9 10^3/uL (4.8-10.8)
[2023-12-12 03:40] LABS: Blood Urea Nitrogen 37 mg/dl (7-17); Calcium 8.3 mg/dl (8.4-10.2); Carbon Dioxide 26 mmol/L (22-30); Chloride 107 mmol/L (98-107); Estimated Creatinine Clearance 53 ml/min; Glucose 120 mg/dl (70-99); Potassium 4.2 mmol/L (3.5-5.1); Sodium 135 mmol/L (135-145); eGFR 55.07
[2023-12-12 04:14] LABS: Mean Platelet Volume 10.8 fL (7.4-10.4); Platelet Count 97 10^3/uL (130-400)
--- NOTE | 2023-12-12 04:30 | PTCARENOTE ---
Patient reassessed. High blood pressure SBP 150s-160s noted CT PA notified nitro gtt ordered for patient. Started gtt at 5 mcg per order. SBP dropped to 120-130s. AM hygiene care provided. No orders to deline patient. Assisted patient OOB to chair.
Administered oxy 5, tylenol, and skelaxin for pain. Patient is stable at this time.
[2023-12-12] MEDS: TYLENOL 650 MG PO ×5 (04:42→20:08)
[2023-12-12] MEDS: SKELAXIN 800 MG PO ×2 (04:42→20:08)
--- NOTE | 2023-12-12 05:05 | W.PN.CT ---
Today's Communication / Plan
-
-pod #2
-no significant issues
-CI 2.36, CO 4.46. Drips: Dobut 0.5, Nitro 5
-hypertensive 140s-150s when wakes up - holding BB and Amio d/t bradycardia and Dobut
-CT output:med and R pleur 105/305 in 12 hrs (serosang fluid, no air leak)
-Cr trending up - 1.1 today (0.9 on 12/10 and 1.0 preop)-held Toradol, follow Cr
-current meds (ASA, Neurontin tid, Synthroid, Vit C, iv iron)
-Maintain temporary pacer wires (will cut before d/c home)
-Encourage use of IS
-Wean off of O2 as tolerated (pOx 100% on 1L)
-OOB into chair
-Ambulate
Assessment / Plan
-
Assessment:
S/p Right mini thoracotomy with right common femoral artery and vein cannulation under CHELSEY guidance/Radical mitral valve repair (32 mm band annuloplasty, [place]-Ángel cords placed to A2, P2, P3, cleft closure of P2/P3 and P1/P2)/Left atrial appendage
exclusion (sewn shut)/ PFO/ASD Closure, by Dr. Ponce, 12/10/23, pod#2
-Severe MR secondary to degenerative mitral valve disease, type II pathology
-LVEF 55-60% per intraop CHELSEY
-Mild TR
-Hx NSVT/PVC's
-Palpitations
-HTN
-HLD
-Class 1 obesity (BMI 30.7)
-Prediabetes (A1C 5.7)
-GERD
-Hypothyroidism
-Acne vulgaris
-Ptosis
-Migraines
-Iron deficiency anemia
-Vit D deficiency
-Diverticulosis
-Colon polyps (sessile serrated adenoma)
-Fibrocystic breast
-S/p D&C, 07/18/11
-S/p b/l tubal ligation
-S/P polypectomies
-S/P Repair of left index finger
-S/p b/l cataracts with lens implantation
-Acute postop blood loss/Anemia (stable without transfusion)
-Acute postop atelectasis
-Acute postop hypovolemia with subsequent hypervolemia
Discussed patient care with: Nursing and Care Team
Subjective
Procedure
Right mini thoracotomy with right common femoral artery and vein cannulation under CHELSEY guidance/Radical mitral valve repair (32 mm band annuloplasty, [place]-Ángel cords placed to A2, P2, P3, cleft closure of P2/P3 and P1/P2)/Left atrial appendage
exclusion (sewn shut)/ PFO/ASD Closure, by Dr. Ponce, 12/10/23
-
Date of Service: December 12, 2023
Objective Data
-
PT 15.9 Sec (11.4-14.6) H 12/10/23 13:11
INR 1.28 12/10/23 13:11
APTT 26.9 Sec (23.4-35.0) 12/10/23 13:11
Vital Signs
Vital Signs
Temp Pulse Resp BP Pulse Ox
98.4 F 56 12 133/60 100
12/12/23 01:00 12/12/23 01:00 12/12/23 01:00 12/12/23 01:00 12/12/23 00:00
CT Intake/Output/Weight
12/11/23 12/11/23 12/12/23
06:59 18:59 06:59
Intake Total 656.4 / 1178.4 909.7 / 1058.8 149.1 / 1058.8
Output Total 430 / 940 1495 / 1780 285 / 1780
Balance 226.4 / 238.4 -585.3 / -721.2 -135.9 / -721.2
SaO2: 100
Physical Exam
-
General: Awake and AOx3
Cardiovascular: Regular rate & rhythm, No Murmurs and Rub
Respiratory: Decreased Breath Sounds
Incision: Clean, Dry and Dressing Intact
Extremities: Other (trace edema b/l)
Abdomen: soft, nontender, nondistended, + bowel sounds
Data Reviewed
-
Lab Results: Results Reviewed
Medications: Active Meds Reviewed
Chest X-Ray: Report Reviewed and Image Reviewed
ECG: Report Reviewed and Image Reviewed
[2023-12-12] MEDS: SYNTHROID 150 MCG PO (06:31)
--- NOTE | 2023-12-12 07:17 | W.PN.CD ---
Today's Communication / Plan
-
Routine postoperative management.
Incentive spirometry.
Ambulation.
Discontinue dobutamine.
Impression / Plan
-
Impression/Plan: 68 y/o female with mitral valve prolapse and severe mitral regurgitation admitted for elective mitral valve repair.
#MVP with severe MR
-S/P complex MV repair using a #32 Burroughs PhysioFlex band (SN [id number]) and GoreTex Neochords x4 (three to P2/3, one to A2).
-Routine post operative management per CT surgery.
-Encourage incentive spirometry and ambulation.
-Chest tube management per CTS.
-Discontinue dobutamine.
-Hold further diuresis.
#Hypothyroidism
-Chronic, stable.
-Home levothyroxine.
Subjective/Interval History:
Dobutamine restarted yesterday (very low dose).
CI is now consistently > 2.2.
Hypertensive this morning. Nitro gtt started.
PADP is very labile (9-24).
DATA:
Intraprocedural CHELSEY, 12/10/2023:
CONCLUSIONS
�Severe mitral regurgitation resulting from prolapsing P2, P3, A3 leaflet
�segments and a P2/P3 cleft.� Trace jet of central aortic insufficiency is also
�seen.� Mild tricuspid regurgitation.� The thoracic aorta is grossly normal.�
�Small patent foramen ovale is seen.� Normal biventricular systolic function
�with LVEF of 55-60% by visual inspection.� Dilated left atrium noted.
POST OPERATIVE FINDINGS
�S/P mitral valve repair with band and neochords; left atrial appendage
�exclusion
�
�The mitral valve opens adequately with no residual regurgitation.� The mean
�gradient is 1 mmHg.� The left atrial appendage is sewn closed with no flow seen
�by color Doppler.� The patent foramen ovale is no longer seen.� Otherwise
�unchanged exam.� The rhythm is VVI paced.
Physical Exam
Vital Signs/Labs
Vital Signs
Temp Pulse Resp BP Pulse Ox
37.2 C 62 12 156/55 94
12/12/23 06:00 12/12/23 06:15 12/12/23 06:00 12/12/23 06:00 12/12/23 06:00
12/10/23 12/11/23 12/12/23
11:59 11:59 11:59
Actual Weight 82.2 kg 85.2 kg 86 kg
12/12/23 03:08
12/12/23 03:08
PT 15.9 Sec (11.4-14.6) H 12/10/23 13:11
INR 1.28 12/10/23 13:11
APTT 26.9 Sec (23.4-35.0) 12/10/23 13:11
Magnesium 2.5 mg/dl (1.6-2.3) H 12/11/23 03:42
Physical Exam
Constitutional: No acute distress and Comfortable
EENT: Anicteric and Moist mucous membranes
Cardiovascular: Rhythm & rate is regular, Pedal edema is absent, JVD pressure is normal, S1S2 is normal and Murmur/rub/gallop absent
Respiratory: Respiratory effort normal, Lungs clear to auscul., Wheeze Absent, Crackles Absent and Rhonchi Absent
GI: Soft, Distention absent, Flat, Non tender and Normal bowel sounds
Neuro/Psych: AO x 3
Data Reviewed
-
Date of Service: December 12, 2023
Medical Decision Making: Reviewed Test Results, Independent Historian Assessment, Test Interpretation and Review of Case with other Provider
EKG: Tracing Personally Visualized and interpreted and Report Reviewed by me
Echo: Report Reviewed by me
X-Ray/CT/US/MRI/NUC/PET: Image Personally Visualized and interpreted and Report Reviewed by me
Medical Tests (PFT, Pathology etc): Image Personally Visualized and interpreted and Report Reviewed by me
Labs: Labs Reviewed by me
Old Records: Reviewed
[2023-12-12] MEDS: MAGNESIUM OXIDE 500 MG PO ×2 (07:56→20:08)
[2023-12-12] MEDS: LOW STRENGTH ASPIRIN 81 MG PO (07:56)
[2023-12-12] MEDS: SENOKOT-S 1 TABLET PO ×2 (07:56→20:08)
[2023-12-12] MEDS: NEURONTIN 100 MG PO ×3 (07:56→22:43)
[2023-12-12] MEDS: KCL 20 MEQ PO (07:56)
[2023-12-12] MEDS: LASIX 40 MG IV (07:57)
[2023-12-12] MEDS: NSS (PRESERVATIVE FREE) 8 ML IV (07:57)
[2023-12-12] MEDS: VITAMIN C 500 MG PO (07:57)
[2023-12-12] MEDS: LIDOCAINE 4% PATCH 1 PATCH TOPICAL (07:57)
[2023-12-12] MEDS: PEPCID 20 MG IV (07:57)
[2023-12-12] MEDS: BACTROBAN 2% OINTMENT 1 APPLIC NASAL ×2 (07:57→20:08)
--- NOTE | 2023-12-12 08:00 | PTCARENOTE ---
pt received from previous RN, oriented, OOB in chair. SB/SR on the monitor, HR 50-60s. V-wire connected to pacer box, off. SBP 120-130s. Nitro gtt titrated off per orders. PAP 30s/10s, CVP ~5-8, CI >2. Dobutamine gtt off per Dr. Ponce. palpable
pulses, trace generalized edema. pt on RA, 94-95% POX. lungs diminished in bases. IS encouraged. IS 1500ml. +occasional FUNDRAISER cough. CT x2, no air leak or crepitus noted. pt abdomen s/n, denies n/v. diet tolerated well. +BS, +flatus. Reis in place. R
chest incisions approximated, LINUX DEVELOPER. chest tube site old drainage. R groin LINUX DEVELOPER, approximated. RIJ cordis/swan maintained. L radial A-line flushed, zeroed and calibrated. PIV. pt c/o R lateral chest incisional pain, received PRN Roxicodone. see
worklist for VS, I&O, and assessment.
--- NOTE | 2023-12-12 09:50 | PTCARENOTE ---
Addendum entered by Idania Neil RN 12/12/23 13:13:
V wire insulated as ordered.
Original Note:
pt placed back to bed. Chari Brody dc'd as ordered, HERNAN cramer dc'd as ordered. morse care provided, Morse removed as ordered. ALLEGRA Pat at bedside, CT x2 dc'd by ALLEGRA. dressing c/d/i. pt OOB in chair.
[2023-12-12] MEDS: NSS 500 IV (11:12)
--- NOTE | 2023-12-12 11:43 | CM ---
CM following for DC planning needs.
Attempted to meet w/ patient on this AM. Pt. was sleeping soundly. Will re-attempt later.
Anticipated DC plan is for home w/ CT Transitional Care RN.
CM to follow.
--- NOTE | 2023-12-12 12:10 | W.PN.INTV ---
Today's Communication / Plan
Recommendations
Doing well, off pressors
Lines/chest tubes are discontinued
Encourage ambulation/IS
Transfer process initiated for tele, we will sign off upon transfer
Assessment
-
Patient is a 68-year-old female with known history of mitral valve prolapse and severe mitral insufficiency with complaints of progressive dyspnea on exertion. Underwent mitral valve repair 12/10/23 and postoperatively transferred to CVICU for
further management.
MVP with severe MVI s/p MVR 12/10/23
Small PFO s/p closure 12/10/23
BEASLEY
Periop MV s/p extubation
Postop anemia
Acute hypercarbic resp failure, mild (ABG 7./52)
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
Former smoker
[place] Vulgaris� �
Hypothyroidism
Fibrocystic breast� �
GERD� �
H/o colon polyp/sessile serrated tubular adenoma � �
H/o ptosis s/p bleph surgery� �
Low Vitamin D� �
Iron deficiency anemia� �
Cataracts s/p cataract extraction and lens implantation (2009)� �
Diverticulosis� �
NSVT, PVC's� �
Hyperlipidemia� �
s/p B/L tubal ligation
L index finger surgery
Obesity
Plan
S/p MVR POD #2
Off pressors, stable
ECHO reviewed with normal function
PA catheter readings reviewed
Management of chest tubes per primary service
Pain control
RASS goal of 0 to -1
Intubated for procedure, extubated in PACU, tolerating well
ABG(s) reviewed showing mild hypercarbia, repeat adequate
CXR with stable postop changes
Maintain supplement oxygen as needed
No prior known history of lung disease.
Was a former smoker. Quit >30 years ago, total use of 1 PPD for 20 years.
No prior PFTs for review
Can add nebulizers if needed
Aspiration precautions
Encouraged incentive spirometry, OOB/ambulation/early mobility
Possible underlying SIXTO, risk factors include BMI, age
Advance diet as tolerated following extubation
GI prophylaxis if indicated for mechanical ventilation >48 hours
Monitor critical I/O's
Reis/chest tube output
Hb/platelets postoperatively stable
Trend CBC for now
Can transfuse if indicated for Hb <7, plt <50 in surgical patients
DVT prophylaxis including SCDs
Diagnostic Data
Chest X-Ray: 12/09/23- Right internal jugular approach [place]-Dilip catheter with the tip in the main pulmonary artery. Two catheters project over the upper and lower aspects of the mediastinum. A defibrillator pad overlies the right chest wall.
[id number] elevation of the right hemidiaphragm. No focal consolidation, pleural effusion, or pneumothorax. The cardiomediastinal silhouette is stable.
09/14/22- No acute radiographic abnormality in the chest. Specifically, no evidence for right apical pneumothorax
CT Scan: CAP 12/04/23- Mild calcific atherosclerotic changes of the thoracic aortic arch and descending thoracic aorta. No findings to suggest thoracic/abdominal aortic aneurysm or dissection.
Either two small contiguous simple right lobe hepatic cyst versus larger single bilobed cyst. Small simple left renal cyst. Few small right lower quadrant mesenteric lymph nodes, nonspecific. Findings could represent mesenteric adenitis. Small fat
only containing umbilical hernia.
Echo: CHELSEY 12/10/23- Severe mitral regurgitation resulting from prolapsing P2, P3, A3 leaflet segments and a P2/P3 cleft.� Trace jet of central aortic insufficiency is also�seen.� Mild tricuspid regurgitation.� The thoracic aorta is grossly
normal.��Small patent foramen ovale is seen.� Normal biventricular systolic function�with LVEF of 55-60% by visual inspection.� Dilated left atrium noted.
�
PFT's:
Reports and relevant images were personally reviewed.
-----
Critical Care time 32 mins -- The patient is admitted for acute critical illness for the treatment of vital organ failure and/or prevention of further life-threatening conditions. Total care includes time spent in review of history, physical exam,
medications, hemodynamic/ventilator parameters, laboratory data, imaging and discussion with house staff, pharmacy, respiratory therapy, cargo surveyor, and nursing.
Subjective Dataa
Subjective Data
Date of Service:
Date of Service: December 12, 2023
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
Subjective:
Doing well today, off pressors/PAC removed
Chest tubes also discontinued
Denies any new complaints
Objective Data
Data Reviewed
Vital Signs / I&O / Oxygen:
Vital Signs
Temp Pulse Resp BP Pulse Ox
97.9 F 70 16 120/59 95
12/12/23 11:17 12/12/23 11:16 12/12/23 11:17 12/12/23 11:16 12/12/23 11:17
Intake and Output
12/11/23 12/12/23 12/13/23
06:59 06:59 06:59
Intake Total 1153.6 / 1178.4 1647.7 / 1670.5 62.8 / 62.8
Output Total 895 / 940 1984 / 1984 475 / 475
Balance 258.6 / 238.4 -337.3 / -314.5 -412.2 / -412.2
SaO2 95
Nasal Cannula flow liters per 1
minute
Physical Exam
General: Comfortable and Other (NAD)
HEENT: Normocephalic, Anicteric and Moist Mucous Membranes
Cardiovascular: S1-S2 and Regular Rhythm
Respiratory: Clear and Non-Labored Respirations
GI: Soft, Non Distended and Non Tender
Neurology: Awake, Alert, Oriented, AO x 3 and No Motor Deficits
Skin: Warm, Dry and Good Color
Labs/Micro/Reports
Lab Data
12/12/23 03:08
12/12/23 03:08
--- NOTE | 2023-12-12 12:30 | PTCARENOTE ---
pt VSS, no changes in assessment. pt ambulating in hallways independently. voiding in bathroom. pain controlled w/ Tylenol. at bedside.
[2023-12-12] MEDS: FERRLECIT 110 MG IV (13:45)
--- NOTE | 2023-12-12 16:00 | PTCARENOTE ---
pt VSS, no changes in assessment. pt ambulating in hallway independently. voiding in bathroom.
[2023-12-12 19:24] LABS: Hepatitis C Antibody Negative (Negative)
--- NOTE | 2023-12-12 20:30 | PTCARENOTE ---
Patient received ambulating in room by self. Patient A+A+Ox3. No neurological deficits noted. No c/o headache, dizziness or lightheadedness. No c/o SOB. Room air. SaO2 94%. Chest tube dressing intact. Right lateral incision and puncture
sites with surgical adhesive and open to air. Right breast region ecchymotic. Sinus Rhythm. Heart rate 70's. V-Wire insulated. No c/o chest pain, pressure or discomfort. Right groin incision with surgical adhesive and open to air. Normoactive
bowel sounds. Voiding without difficulty. Patient with no c/o back or flank pain. Trace generalized edema. Bilateral lower extremity edema. Positive, palpable pulses. Afebrile. Assessment as documented.
[2023-12-12] MEDS: ZOFRAN 4 MG IV (23:38)
[2023-12-13] VITALS (12 sets, daily range): BP systolic 110–155; BP diastolic 54–87; PULSE 76; O2SAT 96–98; BMI 31.4
--- NOTE | 2023-12-13 | PTCARENOTE ---
Patient resting in bed. Patient with c/o nausea - Zofran 4mg IV given without difficulty - Positive relief provided. Right I.J. Cordis - Intact and patent - Saline flush 10 ml/hr. No further changes from previous assessment.
[2023-12-13] MEDS: TYLENOL PO ×2 (00:40→03:56)
--- NOTE | 2023-12-13 03:50 | PTCARENOTE ---
Patient A+A+Ox3. Patient resting in bed. AM lab work collected and sent. Standing scale weight 85.5 kg. No c/o nausea. Patient back to sleep. Assessment/Interventions as documented.
[2023-12-13 04:05] LABS: Hematocrit 24.1 % (37.0-47.0); Hemoglobin 8.2 g/dL (12.0-16.0); Mean Corpuscular Hgb 31.8 pg (27.0-31.0); Mean Corpuscular Volume 93.4 fL (81.0-99.0); Mean Platelet Volume 10.6 fL (7.4-10.4); Platelet Count 98 10^3/uL (130-400); Red Blood Cell Count 2.58 10^6/uL (4.20-5.40); Red Cell Dist. Width 13.5 % (11.5-14.5); White Blood Cell Count 8.7 10^3/uL (4.8-10.8)
[2023-12-13] MEDS: SKELAXIN 800 MG PO ×2 (04:13→20:27)
[2023-12-13 04:28] LABS: Blood Urea Nitrogen 22 mg/dl (7-17); Calcium 8.4 mg/dl (8.4-10.2); Carbon Dioxide 31 mmol/L (22-30); Chloride 105 mmol/L (98-107); Estimated Creatinine Clearance 74 ml/min; Glucose 97 mg/dl (70-99); Potassium 4.3 mmol/L (3.5-5.1); Sodium 136 mmol/L (135-145); eGFR > 60.00
[2023-12-13] MEDS: SYNTHROID 150 MCG PO (06:24)
--- NOTE | 2023-12-13 06:36 | W.PN.CT ---
Today's Communication / Plan
-
-pod #3
-no issues overnight
-continue current meds
-encourage IS, ambulate
-Maintain temporary pacer wires (will cut before d/c home)
Assessment / Plan
-
Assessment:
S/p Right mini thoracotomy with right common femoral artery and vein cannulation under CHELSEY guidance/Radical mitral valve repair (32 mm band annuloplasty, [place]-Ángel cords placed to A2, P2, P3, cleft closure of P2/P3 and P1/P2)/Left atrial appendage
exclusion (sewn shut)/ PFO/ASD Closure, by Dr. Ponce, 12/10/23, pod#3
-Severe MR secondary to degenerative mitral valve disease, type II pathology
-LVEF 55-60% per intraop CHELSEY
-Mild TR
-Hx NSVT/PVC's
-Palpitations
-HTN
-HLD
-Class 1 obesity (BMI 30.7)
-Prediabetes (A1C 5.7)
-GERD
-Hypothyroidism
-Acne vulgaris
-Ptosis
-Migraines
-Iron deficiency anemia
-Vit D deficiency
-Diverticulosis
-Colon polyps (sessile serrated adenoma)
-Fibrocystic breast
-S/p D&C, 07/18/11
-S/p b/l tubal ligation
-S/P polypectomies
-S/P Repair of left index finger
-S/p b/l cataracts with lens implantation
-Acute postop blood loss/Anemia (stable without transfusion)
-Acute postop atelectasis
-Acute postop hypovolemia with subsequent hypervolemia
Discussed patient care with: Nursing and Care Team
Subjective
Procedure
Right mini thoracotomy with right common femoral artery and vein cannulation under CHELSEY guidance/Radical mitral valve repair (32 mm band annuloplasty, [place]-Ángel cords placed to A2, P2, P3, cleft closure of P2/P3 and P1/P2)/Left atrial appendage
exclusion (sewn shut)/ PFO/ASD Closure, by Dr. Ponce, 12/10/23
-
Date of Service: December 13, 2023
Objective Data
-
Lab Results
12/13/23 03:39
12/13/23 03:39
PT 15.9 Sec (11.4-14.6) H 12/10/23 13:11
INR 1.28 12/10/23 13:11
APTT 26.9 Sec (23.4-35.0) 12/10/23 13:11
Vital Signs
Vital Signs
Temp Pulse Resp BP Pulse Ox
98.4 F 55 16 126/60 94
12/13/23 03:45 12/13/23 03:45 12/13/23 03:45 12/13/23 03:45 12/13/23 03:45
CT Intake/Output/Weight
12/12/23 12/12/23 12/13/23
06:59 18:59 06:59
Intake Total 738.0 / 1670.5 662.8 / 1482.8 820 / 1482.8
Output Total 490 / 1985 475 / 475
Balance 248.0 / -314.5 187.8 / 1007.8 820 / 1007.8
SaO2: 94
Physical Exam
-
General: Awake and AOx3
Cardiovascular: Regular rate & rhythm, No Murmurs and Rub
Respiratory: Decreased Breath Sounds
Incision: Clean, Dry and Dressing Intact
Extremities: Other (trace edema b/l)
Abdomen: soft, nontender, nondistended, + bowel sounds
Data Reviewed
-
Lab Results: Results Reviewed
Medications: Active Meds Reviewed
Chest X-Ray: Report Reviewed and Image Reviewed
ECG: Report Reviewed and Image Reviewed
--- NOTE | 2023-12-13 07:50 | W.PN.CD ---
Today's Communication / Plan
-
- Restart metoprolol
- Ambulate
- Close to going home
Impression / Plan
-
Impression/Plan: 68 y/o female with mitral valve prolapse and severe mitral regurgitation admitted for elective mitral valve repair.
#MVP with severe MR
-S/P complex MV repair using a #32 Burroughs PhysioFlex band (SN [id number]) and GoreTex Neochords x4 (three to P2/3, one to A2).
-Routine post operative management per CT surgery.
-Encourage incentive spirometry and ambulation.
-Ambulating.
-Tubes are out
-Home meds restarted
-Restart Metoprolol
-Decrease Amiodarone to 200 mg BID
-NSR and normal TN interval.
#Hypothyroidism
-Chronic, stable.
-Home levothyroxine.
Subjective/Interval History:
Off the Dobutamine - restarting Metoprolol.
CI is now consistently > 2.2.
BP is stable now
DATA:
Intraprocedural CHELSEY, 12/10/2023:
CONCLUSIONS
�Severe mitral regurgitation resulting from prolapsing P2, P3, A3 leaflet
�segments and a P2/P3 cleft.� Trace jet of central aortic insufficiency is also
�seen.� Mild tricuspid regurgitation.� The thoracic aorta is grossly normal.�
�Small patent foramen ovale is seen.� Normal biventricular systolic function
�with LVEF of 55-60% by visual inspection.� Dilated left atrium noted.
POST OPERATIVE FINDINGS
�S/P mitral valve repair with band and neochords; left atrial appendage
�exclusion
�
�The mitral valve opens adequately with no residual regurgitation.� The mean
�gradient is 1 mmHg.� The left atrial appendage is sewn closed with no flow seen
�by color Doppler.� The patent foramen ovale is no longer seen.� Otherwise
�unchanged exam.� The rhythm was VVI paced.
Physical Exam
Vital Signs/Labs
Vital Signs
Temp Pulse Resp BP Pulse Ox
98.4 F 55 16 126/60 94
12/13/23 03:45 12/13/23 03:45 12/13/23 03:45 12/13/23 03:45 12/13/23 06:36
12/12/23 12/13/23 12/14/23
06:59 06:59 06:59
Actual Weight 86 kg 85.5 kg
12/13/23 03:39
12/13/23 03:39
PT 15.9 Sec (11.4-14.6) H 12/10/23 13:11
INR 1.28 12/10/23 13:11
APTT 26.9 Sec (23.4-35.0) 12/10/23 13:11
Magnesium 2.5 mg/dl (1.6-2.3) H 12/11/23 03:42
Physical Exam
Constitutional: No acute distress and Comfortable
EENT: Anicteric and Moist mucous membranes
Cardiovascular: Rhythm & rate is regular, Pedal edema is absent, JVD pressure is normal and Systolic murmur absent
Respiratory: Respiratory effort normal, Lungs clear to auscul., Wheeze Absent and Crackles Absent
GI: Soft, Non tender and Normal bowel sounds
Neuro/Psych: Alert, Oriented and AO x 3
Data Reviewed
-
Date of Service: December 13, 2023
Medical Decision Making: Reviewed Test Results, Independent Historian Assessment and Test Interpretation
EKG: Tracing Personally Visualized and interpreted
Echo: Report Reviewed by me
Labs: Labs Reviewed by me
Old Records: Reviewed
--- NOTE | 2023-12-13 08:00 | PTCARENOTE ---
Resumed care of patient from previous RN. AAOx3. VSS. NSS. HR 70s. 96% room air. Chest tube dressing c/d/i. Right lateral incision and puncture sites with surgical adhesive and open to air. Normoactive bowel sounds. BM reported this AM. BRP.
generalized trace edema. palpable pulses. will continue to monitor.
--- NOTE | 2023-12-13 08:31 | W.PN.CD ---
Today's Communication / Plan
-
continue post op care per CTsurgery
monitor post op anemia - hb 8.2
In sinus monitor on tele
Impression / Plan
-
Impression/Plan: 68 y/o female with mitral valve prolapse and severe mitral regurgitation admitted for elective mitral valve repair.
#S/P complex MV repair using a #32 Burroughs PhysioFlex band (SN [id number]) and GoreTex Neochords x4 (three to P2/3, one to A2)for tx of MVP with severe MR
remains in sinus
- continue post op care per Ct surgery
#post op anemia - Hb 8.2 montiro
#Hypothyroidism
-Chronic, stable.
-Home levothyroxine.
Subjective/Interval History:
she felt she did alot of activity yesteraday and feels a little washed out . Otherwise comfortable in chair. Pain controlled. No sob
DATA:
Intraprocedural CHELSEY, 12/10/2023:
CONCLUSIONS
�Severe mitral regurgitation resulting from prolapsing P2, P3, A3 leaflet
�segments and a P2/P3 cleft.� Trace jet of central aortic insufficiency is also
�seen.� Mild tricuspid regurgitation.� The thoracic aorta is grossly normal.�
�Small patent foramen ovale is seen.� Normal biventricular systolic function
�with LVEF of 55-60% by visual inspection.� Dilated left atrium noted.
POST OPERATIVE FINDINGS
�S/P mitral valve repair with band and neochords; left atrial appendage
�exclusion
�
�The mitral valve opens adequately with no residual regurgitation.� The mean
�gradient is 1 mmHg.� The left atrial appendage is sewn closed with no flow seen
�by color Doppler.� The patent foramen ovale is no longer seen.� Otherwise
�unchanged exam.� The rhythm is VVI paced.
Physical Exam
Vital Signs/Labs
Vital Signs
Temp Pulse Resp BP Pulse Ox
98.4 F 55 16 126/60 94
12/13/23 03:45 12/13/23 03:45 12/13/23 03:45 12/13/23 03:45 12/13/23 06:36
12/12/23 12/13/23 12/14/23
06:59 06:59 06:59
Actual Weight 86 kg 85.5 kg
12/13/23 03:39
12/13/23 03:39
PT 15.9 Sec (11.4-14.6) H 12/10/23 13:11
INR 1.28 12/10/23 13:11
APTT 26.9 Sec (23.4-35.0) 12/10/23 13:11
Magnesium 2.5 mg/dl (1.6-2.3) H 12/11/23 03:42
Physical Exam
Constitutional: No acute distress
Cardiovascular: Rhythm & rate is regular and Systolic murmur absent
Respiratory: Wheeze Absent and Rhonchi Absent
GI: Soft and Normal bowel sounds
Neuro/Psych: Alert
Data Reviewed
-
Date of Service: December 13, 2023
Medical Decision Making: Reviewed Test Results
EKG: Report Reviewed by me
Medical Tests (PFT, Pathology etc): Report Reviewed by me
Labs: Labs Reviewed by me
[2023-12-13] MEDS: SENOKOT-S 1 TABLET PO ×2 (08:45→20:27)
[2023-12-13] MEDS: NEURONTIN 100 MG PO ×3 (08:45→22:36)
[2023-12-13] MEDS: LOW STRENGTH ASPIRIN 81 MG PO (08:45)
[2023-12-13] MEDS: KCL 20 MEQ PO (08:45)
[2023-12-13] MEDS: LIDOCAINE 4% PATCH 1 PATCH TOPICAL (08:45)
[2023-12-13] MEDS: MAGNESIUM OXIDE 500 MG PO ×2 (08:45→20:27)
[2023-12-13] MEDS: VITAMIN C 500 MG PO (08:46)
[2023-12-13] MEDS: NSS IV (08:46)
[2023-12-13] MEDS: LASIX 40 MG IV (08:46)
[2023-12-13] MEDS: BACTROBAN 2% OINTMENT 1 APPLIC NASAL ×2 (08:56→20:27)
[2023-12-13] MEDS: TYLENOL 650 MG PO (11:21)
--- NOTE | 2023-12-13 14:25 | PTCARENOTE ---
no change in assessment patient continues to walk halls and in room on her own. minimal pain reported VSS.
[2023-12-13] MEDS: FERRLECIT 110 MG IV (14:33)
--- NOTE | 2023-12-13 15:05 | CM ---
Addendum entered by TYRA Yarbrough 12/13/23 16:47:
Met w/ patient at bedside. Pt. feels well. Plan for home w/ CT Transitional Care RN reviewed.
No add'l needs noted.
Original Note:
CM following for DC planning needs.
Attempted to meet w/ patient today again. Pt. asleep; spouse at bedside. Introduced CM to spouse. Will plan to return at a later time.
CM has observed patient ambulating ad luke around [place].
Plan for home w/ CT Transitional Care RN once stable.
CM to follow.
--- NOTE | 2023-12-13 21:00 | PTCARENOTE ---
Patient received OOB in chair. Family at bedside. Patient A+A+Ox3. No neurological deficits noted. Patient ambulating by self without difficulty. Room air. SaO2 95%. No c/o SOB. Sinus Rhythm. Heart rate 60-70's. Patient with no c/o chest
pain, pressure or discomfort. Normoactive bowel sounds. No BM. Positive flatus. Voiding without difficulty. Right I.J. Cordis. Right lateral chest with surgical incision and puncture sites - Surgical adhesive - Open to air - Area ecchymotic.
Chest tube dressing intact. V-Wires insulated. Trace edema. Positive, palpable pulses. No c/o nausea. No vomiting. Patient with no c/o back or flank pain. Right groin incision - Surgical adhesive - Open to air. Assessment as documented.
[2023-12-14] MEDS: ROXICODONE 5 MG PO (00:09)
[2023-12-14] MEDS: TYLENOL 650 MG PO (00:09)
--- NOTE | 2023-12-14 00:45 | PTCARENOTE ---
Patient with c/o soreness and pain over surgical site - 5/10 pain. Tylenol 650 mg PO and Roxicodone 5 mg PO given. Patient now sleeping. Assessment as documented.
--- NOTE | 2023-12-14 03:35 | PTCARENOTE ---
Patient sleeping without difficulty. Assessment/Interventions as documented.
[2023-12-14 04:15] LABS: Hematocrit 26.5 % (37.0-47.0); Hemoglobin 9.1 g/dL (12.0-16.0); Mean Corp Hgb Conc. 34.3 g/dL (33.0-37.0); Mean Corpuscular Hgb 32.2 pg (27.0-31.0); Mean Corpuscular Volume 93.6 fL (81.0-99.0); Mean Platelet Volume 10.2 fL (7.4-10.4); Platelet Count 133 10^3/uL (130-400); Red Blood Cell Count 2.83 10^6/uL (4.20-5.40); Red Cell Dist. Width 13.2 % (11.5-14.5); White Blood Cell Count 7.4 10^3/uL (4.8-10.8)
[2023-12-14 04:29] VITALS: BP 127/61
[2023-12-14 04:29] LABS: Blood Urea Nitrogen 17 mg/dl (7-17); Calcium 8.9 mg/dl (8.4-10.2); Carbon Dioxide 34 mmol/L (22-30); Chloride 102 mmol/L (98-107); Estimated Creatinine Clearance 74 ml/min; Glucose 105 mg/dl (70-99); Potassium 4.1 mmol/L (3.5-5.1); Sodium 138 mmol/L (135-145); eGFR > 60.00
[2023-12-14 04:30] VITALS: BP 127/61
--- NOTE | 2023-12-14 04:50 | PTCARENOTE ---
Right I.J. Cordis removed without difficulty. Patient back to sleep. Assessment/Interventions as documented.
--- NOTE | 2023-12-14 05:24 | W.PN.CT ---
Addendum entered and electronically signed by Moi Reyes MD 12/14/23 09:38:
I saw and examined the patient.
The PA's note was reviewed and I agree with the note.
Comment:
POD#4 - Doing well, looks/feels good
ECHO yesterday w/ no MR, normal LVEF
Restart home Toprol 12.5mg this AM, follow HR - if stable, ok for D/C
F/U 2-view CXR
D/C home today
Original Note:
Today's Communication / Plan
-
-pod #4
-no issues overnight. Looks and feels better overall, wants to go home
-diuresed with 40 iv Lasix 12/12 (UO not measured)
-BB and Amio held postop (mildly bradycardic at night low-mid 50s). Noted Cardiology recommendation to restart BB (at home was on 12.5 mg Toprol)
-follow-up Echo 12/12: S/p Mitral valve repair, well seated annuloplasty ring.� Mean gradient is 5mmHg.
-follow 2v-cxr
-continue current meds
-encourage IS, ambulate
-possible d/c (will cut pw before d/c home)
Assessment / Plan
-
Assessment:
S/p Right mini thoracotomy with right common femoral artery and vein cannulation under CHELSEY guidance/Radical mitral valve repair (32 mm band annuloplasty, [place]-Ángel cords placed to A2, P2, P3, cleft closure of P2/P3 and P1/P2)/Left atrial appendage
exclusion (sewn shut)/ PFO/ASD Closure, by Dr. Ponce, 12/10/23, pod#4
-Severe MR secondary to degenerative mitral valve disease, type II pathology
-LVEF 55-60% per intraop CHELSEY
-Mild TR
-Hx NSVT/PVC's
-Palpitations
-HTN
-HLD
-Class 1 obesity (BMI 30.7)
-Prediabetes (A1C 5.7)
-GERD
-Hypothyroidism
-Acne vulgaris
-Ptosis
-Migraines
-Iron deficiency anemia
-Vit D deficiency
-Diverticulosis
-Colon polyps (sessile serrated adenoma)
-Fibrocystic breast
-S/p D&C, 07/18/11
-S/p b/l tubal ligation
-S/P polypectomies
-S/P Repair of left index finger
-S/p b/l cataracts with lens implantation
-Acute postop blood loss/Anemia (stable without transfusion)
-Acute postop atelectasis
-Acute postop hypovolemia with subsequent hypervolemia
Discussed patient care with: Nursing and Care Team
Subjective
Procedure
Right mini thoracotomy with right common femoral artery and vein cannulation under CHELSEY guidance/Radical mitral valve repair (32 mm band annuloplasty, [place]-Ángel cords placed to A2, P2, P3, cleft closure of P2/P3 and P1/P2)/Left atrial appendage
exclusion (sewn shut)/ PFO/ASD Closure, by Dr. Ponce, 12/10/23
-
Date of Service: December 14, 2023
Objective Data
-
PT 15.9 Sec (11.4-14.6) H 12/10/23 13:11
INR 1.28 12/10/23 13:11
APTT 26.9 Sec (23.4-35.0) 12/10/23 13:11
Vital Signs
Vital Signs
Temp Pulse Resp BP Pulse Ox
99.0 F 72 16 140/72 95
12/13/23 22:40 12/14/23 00:00 12/13/23 22:40 12/13/23 22:40 12/13/23 22:40
CT Intake/Output/Weight
03/08/24 03/08/24 03/09/24
06:59 18:59 06:59
Intake Total 820 / 1482.8 50 / 350 300 / 350
Balance 820 / 1007.8 50 / 350 300 / 350
SaO2: 95
Physical Exam
-
General: Awake and AOx3
Cardiovascular: Regular rate & rhythm, No Murmurs and Rub
Respiratory: Decreased Breath Sounds
Incision: Clean, Dry and Dressing Intact
Abdomen: soft, nontender, nondistended, + bowel sounds
Extremities: Other (trace edema b/l)
Data Reviewed
-
Lab Results: Results Reviewed
Medications: Active Meds Reviewed
Chest X-Ray: Report Reviewed and Image Reviewed
ECG: Report Reviewed and Image Reviewed
[2023-12-14 06:00] VITALS: BMI 30.4
[2023-12-14] MEDS: SYNTHROID 150 MCG PO (06:22)
[2023-12-14 08:47] VITALS: BP 119/68
--- NOTE | 2023-12-14 08:48 | W.DCSUMMARY ---
Discharge Summary
Discharge Data
Date of Admission: 12/10/23
Date of Discharge: 12/14/23
-
Pending Results: No
Hospital Course
Primary care physician: Christian Hernández
Outpatient mold closer helper: Dr. Rodriguez
Inpatient consultants: [facility] Card[facility]
Procedures:
1. Medical mitral valve repair, left atrial appendage exclusion, and PFO/ASD closure
Primary Diagnosis:
1. Severe mitral valve insufficiency secondary to degenerative mitral valve disease
Secondary Diagnoses:
1. Hypothyroidism
2.� GERD
3.� Colonic polyps
4.� Iron deficiency anemia
5.� Cataracts
6.� History of NSVT/PVC
7.� Hyperlipidemia
8. Acute surgical blood loss anemia-expected
HPI: 68-year-old female electively admitted on 12/10/2023 for mitral valve repair
Hospital course: Patient underwent right minithoracotomy's, radical mitral valve repair #32 band, [place] cords, cleft closure, left atrial appendage oversew, and PFO/ASD closure with Dr. Ponce. Intraoperative postprocedure CHELSEY reported ejection
fraction of 55-60%, no MR, no PFO. Patient was extubated in the operating room and required no intraoperative blood. Patient returned to the CVICU on Levophed and dobutamine. Levophed was weaned off on postoperative day #1. Amiodarone and
beta-dahlia were held due to sinus bradycardia. Iron and vitamin C were initiated for postoperative anemia. Dobutamine was weaned off on postoperative day #2. Bennett, chest tube, and Reis were removed. Patient was diuresed with 40 mg of IV
Lasix. Postprocedure TTE on postoperative day #3 reported normal ejection fraction with mitral valve mean gradient 5 mmHg, no MR. On postoperative day #4, Toprol XL was resumed per cardiology at home dose of 12.5 mg daily. Heart rate and blood
pressure remained stable several hours after dose. Temporary pacing wires were clipped to skin level. Predischarge chest x-ray reported small stable bilateral pleural effusions. Patient is stable for discharge home
Home medication changes:
see below
Discharge Plan
-
Patient Disposition: Home (Routine Discharge)
Discharge Diagnosis/Procedures: mitral regurgitation/mitral valve repair
Condition: Good
Diet: Low Cholesterol and Low Sodium
Activity: No strenuous activity
Driving Restrictions: Not until seen by your Dr
Bathing Restrictions: OK to Shower
Other Services: Cardiac Rehab
Specialty Instructions: Weigh Daily- Call MD for wt gain/loss 3 lbs overnight/5 lbs in 1 week
Activity Restrictions/Additional Instructions:
Please tell your doctors/dentist that you have had a mitral valve repair and will need antibiotic prophylaxis prior to dental and invasive procedures.
Clipped sternal wires and temporary pacing wires will not impact ability to have an MRI
Referrals:
CT Transitional Care Nurse [Outside] (The Cardiothoracic Transitional Care Nurse will call you to set up a visit in 1-2 days.)
[facility] Cardiac Rehab [Outside] - 01/16/24 1:00 pm
(Cardiac Rehab Orientation appointment is on 01/16/24 (Th) at 1:00 pm
The Cardiac Rehab gym is located on the first floor of the [facility].)
Christian Hernández I., DO [Family Provider] -
Jorge Rodriguez MD [Active] - 01/14/24 9:40 am
Nemesio Ponce MD [Active] - 01/09/24 2:00 pm
Additional Discharge Medication Instructions: Do not drive while taking Gabapentin or Oxycodone
Prescriptions:
New
acetaminophen 325 mg Tablet
650 mg PO Q4HPRN PRN (Reason: mild pain,headache,temp >101F ) Qty: 0 0RF
aspirin [Children's Aspirin] 81 mg Tablet,Chewable
81 mg PO DAILY Qty: 0 0RF
gabapentin 100 mg Capsule
100 mg PO TID Qty: 30 0RF
oxycodone 5 mg Tablet
5 mg PO Q4HPRN PRN (Reason: severe pain) Qty: 20 0RF
Continued
levothyroxine 150 mcg Tablet
150 mcg PO DAILY
cholecalciferol (vitamin D3) [Vitamin D3] 25 mcg (1,000 unit) Capsule
25 mcg PO DAILY
magnesium sulfate 100 mg Capsule
500 mg PO DAILY
multivitamin Tablet
1 tab PO DAILY
metoprolol succinate [Toprol XL] 25 mg Tablet Extended Release 24 Hr
12.5 mg PO QPM Qty: 0 0RF
Rx Instructions:
start 12/14
Discharge Orders:
Discharge Patient (As Directed); Ordered 12/14/23
Ordered By: Yudith Altman
Care Plan Goals
Care Plan Goals:
Problem: Readiness for enhanced knowledge related to diagnosis and treatment plan
Goal: Understand your diagnosis and treatment plan needs, including medications if applicable.
Instructions: Know your diagnosis, underlying causes and treatment plan options, including medications if applicable. Consult with your health care team to learn about your diagnosis and treatment plan, including medications if applicable.
[2023-12-14 08:54] VITALS: BP 146/71
[2023-12-14] MEDS: NEURONTIN 100 MG PO (09:12)
[2023-12-14] MEDS: BACTROBAN 2% OINTMENT 1 APPLIC NASAL (09:12)
[2023-12-14] MEDS: MAGNESIUM OXIDE 500 MG PO (09:12)
[2023-12-14] MEDS: KCL 20 MEQ PO (09:12)
[2023-12-14] MEDS: LOW STRENGTH ASPIRIN 81 MG PO (09:13)
[2023-12-14] MEDS: SENOKOT-S PO (09:13)
[2023-12-14] MEDS: LIDOCAINE 4% PATCH TOPICAL (09:13)
[2023-12-14] MEDS: LASIX IV (09:13)
[2023-12-14] MEDS: NSS IV (09:30)
[2023-12-14 09:40] VITALS: BP 119/68; BP 146/71; PULSE 58; O2SAT 98
--- NOTE | 2023-12-14 09:52 | PTCARENOTE ---
assumed care of pt from previous shift RN, sinus rhythm on tele, VSS, + peripheral pulses, no edema, V wire insulated. Lungs clear, pox 96-97% on RA. +bs, tolerating PO intake, voids spontaneously. PIV not flushing, removed. plan of care reviewed w
the pt and questions encouraged.
[2023-12-14] MEDS: TOPROL XL 12.5 MG PO (10:10)
--- NOTE | 2023-12-14 11:37 | W.PN.CD ---
Today's Communication / Plan
-
- Stable for discharge from cardiac stand point.
Impression / Plan
-
68 y/o female with mitral valve prolapse and severe mitral regurgitation admitted for elective mitral valve repair.
#MVP with severe MR
-S/P complex MV repair using a #32 [employer] PhysioFlex band (SN [id number]) and [employer] Neochords x4 (three to P2/3, one to A2).
-Discharge Amiodarone to 200 mg BID
-NSR and normal CT interval.
#Hypothyroidism
-Chronic, stable.
-Home levothyroxine.
Subjective/Interval History:
Doing well.
Ambulating
Physical Exam
Vital Signs/Labs
Vital Signs
Temp Pulse Resp BP Pulse Ox
98.2 F 64 18 146/71 96
12/14/23 08:47 12/14/23 09:00 12/14/23 08:47 12/14/23 08:54 12/14/23 09:59
12/13/23 12/14/23 12/15/23
06:59 06:59 07:59
Actual Weight 85.5 kg 82.9 kg
12/14/23 04:01
12/14/23 04:01
PT 15.9 Sec (11.4-14.6) H 12/10/23 13:11
INR 1.28 12/10/23 13:11
APTT 26.9 Sec (23.4-35.0) 12/10/23 13:11
Magnesium 2.5 mg/dl (1.6-2.3) H 12/11/23 03:42
Physical Exam
Constitutional: No acute distress and Comfortable
EENT: Anicteric and Moist mucous membranes
Cardiovascular: Rhythm & rate is regular, Pedal edema is absent and JVD pressure is normal
Respiratory: Respiratory effort normal, Lungs clear to auscul. and Wheeze Absent
GI: Soft, Non tender and Normal bowel sounds
Neuro/Psych: Alert, Oriented and AO x 3
Data Reviewed
-
Date of Service: December 14, 2023
Medical Decision Making: Reviewed Test Results, Independent Historian Assessment and Test Interpretation
EKG: Tracing Personally Visualized and interpreted
Echo: Report Reviewed by me
Labs: Labs Reviewed by me
Old Records: Reviewed
--- NOTE | 2023-12-14 13:18 | PTCARENOTE ---
IV line and tele monitor removed, pacing wire cut as ordered. Pt showered without incident. Discharge instructions, medication list and follow up appointment reviewed w the pt. Questions encouraged.
== END 2023-12-14 13:19 | disposition home or self-care (01) | DRG 219 ==
LOC: CVICU 05:11
PROVIDERS: Anesthesiology; Clinical Nurse Specialist Acute Care; Nurse Practitioner; Physician Assistant Surgical; ADMITTING PHYSICIAN Thoracic Surgery (Cardiothoracic Vascular Surgery); CONSULT PHYSICIAN Internal Medicine; FAMILY PHYSICIAN Internal Medicine
PROC: 02UG0JZ Supplement Mitral Valve with Synthetic Substitute, Open Approach (ICD-10-PCS; 2023-12-10)
PROC: 02Q50ZZ Repair Atrial Septum, Open Approach (ICD-10-PCS; 2023-12-10)
PROC: 5A1221Z Performance of Cardiac Output, Continuous (ICD-10-PCS; 2023-12-10)
PROC: 02L70CK Occlusion of Left Atrial Appendage with Extraluminal Device, Open Approach (ICD-10-PCS; 2023-12-10)
PROC: B24BZZ4 Ultrasonography of Heart with Aorta, Transesophageal (ICD-10-PCS; 2023-12-10)
DX: I34.0 Nonrheumatic mitral (valve) insufficiency (principal); J96.02 Acute respiratory failure with hypercapnia; Q21.12 Patent foramen ovale; I47.20 Ventricular tachycardia, unspecified; D62 Acute posthemorrhagic anemia; J90 Pleural effusion, not elsewhere classified; I34.1 Nonrheumatic mitral (valve) prolapse; Z87.891 Personal history of nicotine dependence; E03.9 Hypothyroidism, unspecified; E78.5 Hyperlipidemia, unspecified; K21.9 Gastro-esophageal reflux disease without esophagitis; D50.9 Iron deficiency anemia, unspecified; E66.9 Obesity, unspecified; Z68.30 Body mass index [BMI] 30.0-30.9, adult; K63.5 Polyp of colon; H26.9 Unspecified cataract; I49.3 Ventricular premature depolarization
CPT/HCPCS: 93308; 71045; 71046; 80048; 80053; 81003; 81015; 82248; 82330; 82565; 82805; 82810; 82947; 82962; 83036; 83735; 84132; 84302; 84520; 85014; 85018; 85025; 85027; 85049; 85610; 85730; 86803; 86850; 86900; 86901; 86920; 87070; 87086; 93005; 93312; 93320; 93321; 93325; J2916; P9045

== ENCOUNTER → 2023-12-26 08:32 | Outpatient (REF) | payer MEDICARE, OTHER, SELFPAY | LOC: HWCARD 08:32 | PROVIDERS: ATTENDING PHYSICIAN Internal Medicine Cardiovascular Disease; FAMILY PHYSICIAN Internal Medicine | DX: I34.0 Nonrheumatic mitral (valve) insufficiency (principal) | CPT/HCPCS: 93005 ==

== ENCOUNTER 2024-02-03 06:32 | Outpatient (RCR) | payer MEDICARE, OTHER, SELFPAY | END 2024-02-03 23:59 | disposition home or self-care (01) | LOC: CRHB 06:32 | PROVIDERS: ATTENDING PHYSICIAN Internal Medicine Cardiovascular Disease | DX: I34.0 Nonrheumatic mitral (valve) insufficiency (principal); Z95.4 Presence of other heart-valve replacement | CPT/HCPCS: G0422; G0423 ==

== ENCOUNTER 2024-03-06 06:35 | Outpatient (RCR) | payer MEDICARE, OTHER, SELFPAY | END 2024-03-06 23:59 | disposition home or self-care (01) | LOC: CRHB 06:35 | PROVIDERS: ATTENDING PHYSICIAN Internal Medicine Cardiovascular Disease | DX: Z95.4 Presence of other heart-valve replacement (principal) | CPT/HCPCS: G0422; G0423 ==

== ENCOUNTER 2024-04-03 06:42 | Outpatient (RCR) | payer MEDICARE, OTHER, SELFPAY | END 2024-04-03 23:59 | disposition home or self-care (01) | LOC: CRHB 06:42 | PROVIDERS: ATTENDING PHYSICIAN Internal Medicine Cardiovascular Disease | DX: Z95.4 Presence of other heart-valve replacement (principal) | CPT/HCPCS: G0422 ==

== ENCOUNTER 2024-05-04 07:43 | Outpatient (RCR) | payer MEDICARE, OTHER, SELFPAY | END 2024-05-04 23:59 | disposition home or self-care (01) | LOC: CRHB 07:43 | PROVIDERS: ATTENDING PHYSICIAN Internal Medicine Cardiovascular Disease; FAMILY PHYSICIAN Internal Medicine | DX: Z95.4 Presence of other heart-valve replacement (principal) | CPT/HCPCS: G0422; G0423 ==

== ENCOUNTER → 2024-06-16 09:19 | Outpatient (REF) | payer MEDICARE, OTHER, SELFPAY | LOC: RCS 09:19 | PROVIDERS: ATTENDING PHYSICIAN Internal Medicine Cardiovascular Disease; FAMILY PHYSICIAN Internal Medicine | DX: I34.1 Nonrheumatic mitral (valve) prolapse (principal); R00.2 Palpitations; I49.3 Ventricular premature depolarization | CPT/HCPCS: 93225; 93226 ==

== ENCOUNTER → 2024-06-29 12:56 | Outpatient (REF) | payer MEDICARE, OTHER, SELFPAY | LOC: RCS 12:56 | PROVIDERS: ATTENDING PHYSICIAN Thoracic Surgery (Cardiothoracic Vascular Surgery); FAMILY PHYSICIAN Internal Medicine | DX: Z98.890 Other specified postprocedural states (principal) | CPT/HCPCS: 93306 ==

== ENCOUNTER → 2024-11-23 10:37 | Outpatient (REF) | payer MEDICARE, OTHER, SELFPAY | LOC: HWRAD 10:37 | PROVIDERS: ATTENDING PHYSICIAN Internal Medicine | DX: J98.8 Other specified respiratory disorders (principal); R05.1 Acute cough | CPT/HCPCS: 71046 ==

== ENCOUNTER 2025-03-10 06:24 | Day surgery (SDC) | payer MEDICARE, OTHER, SELFPAY | END 2025-03-10 13:39 | disposition home or self-care (01) | LOC: GI 06:24 | PROVIDERS: ATTENDING PHYSICIAN Internal Medicine Gastroenterology | DX: Z12.11 Encounter for screening for malignant neoplasm of colon (principal); K57.30 Diverticulosis of large intestine without perforation or abscess without bleeding; K64.8 Other hemorrhoids; D12.4 Benign neoplasm of descending colon; D12.0 Benign neoplasm of cecum; Z86.0100 Personal history of colon polyps, unspecified | CPT/HCPCS: 45385; 88305 ==

== ENCOUNTER → 2025-06-28 11:05 | Outpatient (REF) | payer MEDICARE, OTHER, SELFPAY | LOC: HWRCS 11:05 | PROVIDERS: ATTENDING PHYSICIAN Thoracic Surgery (Cardiothoracic Vascular Surgery); FAMILY PHYSICIAN Internal Medicine | DX: Z98.890 Other specified postprocedural states (principal) | CPT/HCPCS: 93306 ==